=== PATIENT | female | born 1985 | race Caucasian/White ===

== ENCOUNTER 2020-07-17 17:11 | Outpatient (CLI) | payer OTHER, SELFPAY ==
[2020-07-17 18:04] LABS: Beta HCG Quantitative < 2.39 mIU/ML
== END 2020-07-17 17:12 | disposition home or self-care (01) ==
LOC: ANHLAB 17:13
PROVIDERS: PCP Family Medicine; Visit Provider Obstetrics & Gynecology
DX: N91.2 Amenorrhea, unspecified (principal)
CPT/HCPCS: 36415; 84702

== ENCOUNTER 2021-09-16 12:36 | Emergency (ER) | payer OTHER, SELFPAY ==
[2021-09-16 12:44] VITALS: BP 125/73; PULSE 101; RESP 16; TEMP 36.7; O2SAT 100
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
== END 2021-09-16 13:55 | disposition home or self-care (01) ==
PROVIDERS: Emergency Provider Registered Nurse
DX: J10.1 Influenza due to other identified influenza virus with other respiratory manifestations (principal); F17.210 Nicotine dependence, cigarettes, uncomplicated
CPT/HCPCS: 87081; 87804; 87880; 99213; G0463

== ENCOUNTER 2022-03-27 12:31 | Emergency (ER) | payer OTHER, SELFPAY ==
[2022-03-27 12:36] VITALS: BP 119/77; PULSE 113; RESP 16; TEMP 37.2; O2SAT 100
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
== END 2022-03-27 13:45 | disposition home or self-care (01) ==
PROVIDERS: Emergency Provider Registered Nurse; PCP Physician Assistant
DX: H66.91 Otitis media, unspecified, right ear (principal); J06.9 Acute upper respiratory infection, unspecified; Z20.822 Contact with and (suspected) exposure to COVID-19; F17.210 Nicotine dependence, cigarettes, uncomplicated; Z87.820 Personal history of traumatic brain injury
CPT/HCPCS: 87081; 87426; 87804; 87880; 99213; C9803; G0463

== ENCOUNTER 2023-04-19 12:15 | Emergency (ER) | payer OTHER, SELFPAY ==
[2023-04-19 12:23] VITALS: BP 138/84; PULSE 86; RESP 20; TEMP 36.5; O2SAT 98
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
== END 2023-04-19 12:40 | disposition home or self-care (01) ==
PROVIDERS: Emergency Provider Nurse Practitioner Family; PCP Physician Assistant
DX: J02.9 Acute pharyngitis, unspecified (principal); F17.210 Nicotine dependence, cigarettes, uncomplicated; Z79.01 Long term (current) use of anticoagulants
CPT/HCPCS: 87081; 87880; 99213; G0463

== ENCOUNTER 2023-10-11 14:48 | Observation (INO) | payer OTHER, SELFPAY ==
[2023-10-11 15:30] VITALS: BP 107/61; PULSE 74
[2023-10-11 15:44] VITALS: BP 104/58; PULSE 76
[2023-10-11 15:48] VITALS: TEMP 36.6
--- NOTE | 2023-10-20 13:12 | PM.OBTRLD ---
OB - Triage/Final Diagnosis Visit Information Comments/Additional reasons for admission: I have assessed the risk for this patient, Madina Mensah, and determined that she would benefit from observation care. Final Diagnosis (1) Abdominal pain affecting : Code(s): O26.899 - Other specified related conditions, unspecified trimester; R10.9 - Unspecified abdominal pain Status: Acute
== END 2023-10-11 16:21 | disposition home or self-care (01) ==
PROVIDERS: Admitting Provider Obstetrics & Gynecology; PCP Physician Assistant; Visit Provider Obstetrics & Gynecology
DX: O26.899 Other specified pregnancy related conditions, unspecified trimester (principal); R10.9 Unspecified abdominal pain; Z3A.00 Weeks of gestation of pregnancy not specified
CPT/HCPCS: 36415; 82947; 85014; 85018; 85461; 86703; 86850; 86900; 86901; 90384; 96372; G0378; G0379; G0432; J2790

== ENCOUNTER 2023-12-24 12:25 | Observation (INO) | payer OTHER, SELFPAY ==
--- NOTE | 2023-12-24 12:26 | PC.NURSE ---
Dr Frances notified of adm c/o contractions at 38.3 weeks.
--- NOTE | 2023-12-24 12:35 | OBADM ---
This patient, Madina Mensah, admitted to the OB room Labor/Delivery/Recovery 104 for observation. Patient/family oriented to hospital policies and general routines including ID bracelet, bed and alarms, visiting hours, pain management, procedures, bathroom and other care routines, personal items, smoking policy, room service/diet, and visiting hours. Patient/Family are encouraged to report perceived risks to care and to ask questions if they do not understand what they are told or what they should do.
--- NOTE | 2023-12-24 14:26 | PC.NURSE ---
Dr Frances updated on slight cervical changed. Will cont to monitor and recheck in two hours.
--- NOTE | 2023-12-24 16:32 | PC.NURSE ---
Dr Frances notified of no additional cervical change and that contractions and freq but patient states they are less strong. Patient comfortable going home. Discharge orders obtained.
--- NOTE | 2024-01-16 07:25 | PM.OBTRLD ---
OB - Triage/Final Diagnosis Visit Information Comments/Additional reasons for admission: I have assessed the risk for this patient, Madina Mensah, and determined that she would benefit from observation care. Final Diagnosis (1) False labor: Code(s): O47.9 - False labor, unspecified Status: Acute
== END 2023-12-24 16:53 ==
PROVIDERS: Admitting Provider Obstetrics & Gynecology; PCP Physician Assistant; Visit Provider Obstetrics & Gynecology
DX: O47.1 False labor at or after 37 completed weeks of gestation (principal); Z3A.38 38 weeks gestation of pregnancy
CPT/HCPCS: G0378; G0379

== ENCOUNTER 2023-12-28 16:00 | Inpatient (IN) | payer OTHER, SELFPAY ==
[2023-12-28] VITALS (13 sets, daily range): BP systolic 105–131; BP diastolic 52–85; PULSE 65–102; TEMP 36.6; BMI 32.1
[2023-12-28 17:21] LABS: Basophils Percent Auto 0.2 % (0.2-1.2); Eosinophils Absolute Auto 0.1 K/mm3 (0-0.3); Eosinophils Percent Auto 0.8 % (0-4.4); Hemoglobin 12.3 g/dL (12.0-15.0); Immature Granulocyte Absolute 0.11 K/mm3 (0.00-0.031); Immature Granulocyte Percent A 0.9 % (0-0.5); Lymphocytes Absolute Auto 2.12 K/mm3 (0.9-3.2); Lymphocytes Percent Auto 17.3 % (18.3-44.2); Mean Corpuscular HGB Conc 33.2 g/dl (32-36); Mean Corpuscular Volume 99.2 fl (80-100); Mean Platelet Volume 11.6 fl (7.4-10.4); Monocytes Absolute Auto 0.9 K/mm3 (0.1-0.6); Neutrophils Percent Auto 73.8 % (45.5-73.1); Platelet Count Result 193 k/mm3 (150-375); Red Blood Count 3.73 M/mm3 (4.2-5.4); Red Cell Distribution Width 14.6 % (11.5-14.5); White Blood Count 12.2 K/mm3 (4.5-10.0)
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
[2023-12-28] MEDS: AMPICILLIN 2 GM/NS 100 ML 2 GM/100 ML BAG IVPB (17:42)
[2023-12-28] MEDS: OXYTOCIN 30 UNITS/NS 500 ML 30 UNITS/500 ML BAG IV CONT (17:43)
[2023-12-28] MEDS: LACTATED RINGERS 1,000 ML 125 ML IV CONT (17:43)
[2023-12-28 17:58] LABS: Rapid Plasma Reagin Non-Reactive (NonReactive)
[2023-12-28 18:13] LABS: HIV 1/2 Ab P24 Ag Result Negative (Negative)
[2023-12-28] MEDS: AMPICILLIN 1 GM/NS 50 ML 1 GM/50 ML BAG IVPB (21:50)
[2023-12-29] VITALS (173 sets, daily range): BP systolic 65–142; BP diastolic 40–91; PULSE 43–103; RESP 18; TEMP 36.2–36.4; O2SAT 76–100
[2023-12-29] MEDS: AMPICILLIN 1 GM/NS 50 ML 1 GM/50 ML BAG IVPB (03:15)
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
[2023-12-29] MEDS: OXYTOCIN 30 UNITS/NS 500 ML 30 UNITS/500 ML BAG 125 UNITS IV CONT (09:40)
--- NOTE | 2023-12-29 10:39 | PM.OBPRVD ---
OB - Vaginal Delivery Note Procedure Delivery date: 12/29/23 Events: Elective Induction of Labor and Other (hx of DVT on heparin) Induction method: Per Pitocin Protocol Delivery augmentation: Rupture of Membranes Delivery monitor: External FHT and External Uterine Route of delivery: Episiotomy description: None Laceration Description: None Specimen: Yes Anesthesia type: Epidural Disposition: Floor Complications: No immediate complications Narrative: See H&P and notes for details on patient's admission and labor. She progressed to complete cervical dilation and at the appropriate time began pushing. With adequate expulsive efforts by the mother, the baby's head was delivered without difficulty. Nuchal cord was not present. The baby's left shoulder was anterior and delivered under the pubic symphysis without difficulty. The posterior shoulder and the rest of the baby delivered without difficulty. The umbilical cord was doubly clamped and cut after 60 seconds of delayed cord clamping. Care of the infant was then assumed by the nursing staff. Baby Date of : 12/29/23 Time of : 09:13 Gestational Age by Date: 39 Infant gender: Female presentation: vertex position: Left Occiput Anterior Placenta delivery description: Expressed Cord Vessel Description: 3 Vessels, True Knot and Delayed Cord Clamping
[2023-12-29] MEDS: WITCH HAZEL 40 PADS 1 PAD TOPICAL (11:30)
[2023-12-29] MEDS: BENZOCAINE 20% AER SPR (*SP) 56 GM CAN 1 SPRAY TOPICAL (11:30)
--- NOTE | 2023-12-29 12:00 | OBPPTRN ---
Patient transferred to post room #282 via wheelchair. Support person present. Oriented to unit, room, information board, rooming in, admission packet and security measures. Patient verbalizes understanding.
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
[2023-12-29] MEDS: ACETAMINOPHEN 325 MG TABLET 650 MG PO (19:51)
[2023-12-29] MEDS: ENOXAPARIN 40 MG/0.4 ML SYRINGE SUB-Q (20:02)
[2023-12-30] MEDS: ACETAMINOPHEN 325 MG TABLET 650 MG PO ×3 (03:56→18:59)
[2023-12-30 04:00] VITALS: BP 126/74; PULSE 65; RESP 18; TEMP 36.5; O2SAT 98
[2023-12-30 06:06] LABS: Hematocrit 33.7 % (37.0-47.0); Hemoglobin 10.9 g/dL (12.0-15.0)
[2023-12-30 08:00] VITALS: BP 140/78; PULSE 61; RESP 18; TEMP 36.9; O2SAT 100
--- NOTE | 2023-12-30 08:29 | PM.OBPNVD ---
OB - PN: Subj Subjective Date/time seen: 12/30/23 08:29 Patient comments: no complaints, pain well controlled, incisional pain, tolerating diet and flatus present OB - PN: Obj Data Labs 12/30/23 04:04 Labs: Laboratory Results - last 24 hr 12/30/23 04:04 Hgb 10.9 L Hct 33.7 L Blood Type O Negative Antibody Screen Negative Screen Negative Baby's Blood Type O pos Baby's DB Negative Doses of RhIg Required 1 OB - PN A/P Plan day: 1 Plan: routine care Comments: No problems, routine care Time Spent With Patient Time: Total time spent is greater than 50% in coordination of care (as documented) at patient's floor/unit and/or counseling patient: Exam Const: General: comfortable, no acute distress and alert Resp: Effort & Inspection: normal respiratory effort Auscultation: no crackles, no rales and no rhonchi Cardio: Rate: regular rate Heart sounds: no click, no murmurs and no rubs GI: Inspection: non-distended GI Palp: No Tenderness to palpation present (GI) Auscultation: normal bowel sounds Other: Incision - CDI Extrem: General: normal to inspection, no pedal edema and no calf tenderness
--- NOTE | 2023-12-30 09:51 | PC.NURSE ---
Went in to give pt her Lovenox and PNV, she is not in the room or on the OB unit at this time
[2023-12-30] MEDS: ENOXAPARIN 40 MG/0.4 ML SYRINGE SUB-Q ×2 (10:26→20:51)
[2023-12-30] MEDS: RHO(D) IMMUNE GLOBULIN 300 MCG/2 ML SYRINGE IM (17:05)
[2023-12-30 20:00] VITALS: BP 138/94; PULSE 70; RESP 18; TEMP 36.7; O2SAT 99
[2023-12-31] MEDS: ACETAMINOPHEN 325 MG TABLET 650 MG PO ×2 (01:39→07:55)
[2023-12-31 07:50] VITALS: BP 145/89; PULSE 71; RESP 18; TEMP 36.8
[2023-12-31] MEDS: ENOXAPARIN 40 MG/0.4 ML SYRINGE SUB-Q (07:55)
--- NOTE | 2023-12-31 10:48 | PM.OBPNVD ---
OB - PN: Subj Subjective Date/time seen: 12/31/23 10:48 Patient comments: no complaints, pain well controlled and tolerating diet OB - PN: Obj Data Labs 12/30/23 04:04 Labs: Laboratory Results - last 24 hr 12/30/23 04:04 Blood Type O Negative Antibody Screen Negative Screen Negative Baby's Blood Type O pos Baby's DB Negative Doses of RhIg Required 1 OB - PN A/P Plan day: 2 Plan: routine care and discharge home Time Spent With Patient Time: Total time spent is greater than 50% in coordination of care (as documented) at patient's floor/unit and/or counseling patient: Exam Const: General: comfortable and no acute distress Resp: Effort & Inspection: normal respiratory effort Auscultation: no rales, no rhonchi and no wheezes Cardio: Rate: regular rate Heart sounds: no click, no murmurs and no rubs GI: GI Palp: Yes Soft to palpation and No Tenderness to palpation present (GI) Auscultation: normal bowel sounds Extrem: General: normal to inspection, no pedal edema and no calf tenderness
--- NOTE | 2023-12-31 10:48 | PM.OBDSVD ---
DS: Admitting Diagnosis Discharge Date December 31, 2023 Admitting Diagnosis term DS: Discharge Diagnosis Discharge Diagnosis (1) Post term , delivered: Code(s): O48.0 - Post-term Status: Acute OB - DS: Summary OB Procedures : None OB Procedures Intrapartum: Spontaneous Vag Delivery OB Procedures: : None Peripartum Data Laceration Description: None Episiotomy description: None Time Spent with Patient Time attestation: Total time spent providing and/or coordinating discharge services: DS: Data Data Completed and Pending Pending studies at discharge: Pending at discharge 12/29/23 09:51 Surgical [PTH] Routine Labs on day of discharge: Labs from last 24 hours 12/30/23 04:04 Blood Type O Negative Antibody Screen Negative Screen Negative Baby's Blood Type O pos Baby's DB Negative Doses of RhIg Required 1 Discharge Plan Discharge Discharging Clinician: Donny Frances Patient Disposition: Home, Self-Care Activity: pelvic rest Diet: regular Patient Instructions: Antibiotic Form Stand Alone Forms: General Discharge Information Follow-up/Referrals: Donny Frances MD [Physician] - Discharge Medications: New oxycodone-acetaminophen 5-325 mg tablet 1 tablet PO Q4H PRN (Reason: pain) Qty: 10 0RF Continued heparin (porcine) 10,000 unit/mL solution 10,000 unit subcut BID Date of admission: 12/28/23 16:00 Primary Care Provider: BlancaCece Admitting Provider: Forrest Redding Attending physician on admission: Forrest Redding Condition: Stable
[2024-01-03 11:16] VITALS: BP 125/77; PULSE 84; RESP 18; TEMP 37.1; O2SAT 99
== END 2023-12-31 12:15 | disposition home or self-care (01) | DRG 807 ==
LOC: ANHOB2 12-31 11:38 → ANHLDR 01-02 08:43 → ANHOB2 01-02 08:43
PROVIDERS: Admitting Provider Obstetrics & Gynecology; PCP Physician Assistant; Visit Provider Obstetrics & Gynecology
DX: O69.2XX0 Labor and delivery complicated by other cord entanglement, with compression, not applicable or unspecified (principal); Z37.0 Single live birth; Z3A.39 39 weeks gestation of pregnancy; Z86.718 Personal history of other venous thrombosis and embolism; O99.824 Streptococcus B carrier state complicating childbirth; O99.334 Smoking (tobacco) complicating childbirth; F17.210 Nicotine dependence, cigarettes, uncomplicated
CPT/HCPCS: 36415; 85014; 85018; 85025; 85461; 86592; 86703; 86850; 86900; 86901; 88307; 90384; A9270; G0432; J0290; J1650; J2590; J2790; J2795; J7120

== ENCOUNTER 2024-10-07 11:07 | Emergency (ER) | payer OTHER, SELFPAY ==
[2024-10-07 11:15] VITALS: BP 118/80; PULSE 100; RESP 20; TEMP 36.4; O2SAT 98
--- OUTSIDE RECORDS SUMMARY | 2024-10-07 11:26 | XMS_ITS | Clinical Summary ---
Author Organization [facility] [employer] Address [address] [place] [address] Care Team Providers Care Membership Sales Manager Name Role Phone Unavailable Primary Care Provider Unavailabl e Source Comments [facility],non-owned Affiliates and Associated Physician Practices is amultiple site organization consisting of ambulatory clinics and hospital sitesin [place], [place], [place] and [place]. This disclosure is being madepursuant to the Care Everywhere program and may not contain all information available regarding this patient. Last updated 18.[facility] [employer] Allergies Active Allergy Reactions Criticality Noted Date Comments Aspirin Anaphylaxis,Urticaria High 07/17/2023 Medications * Be aware that medications may not be up to date on this document. Alwaysverify current medications with the patient. Vit-DSS-Fe Fum-FA ( vitamin with iron) tabletIndicati ons: Take 1 (one) tablet by mouth once daily Reasons: Active enoxaparin (Lovenox) 40 MG/0.4ML injection Inject 40 (forty) mg subcutaneously once daily Active docusate sodium (Colace) 100 MG capsuleIndicat ions:Constipat ion Take 1 (one) capsule by mouth at bedtime Reasons: Constipation Active Family History Medical History Relation Name Comments CAD (Coronary Artery Disease) Father High Cholesterol Father Lung Disease Father Cancer - Lung Maternal Grandfather Renal Disease Maternal Grandfather High Cholesterol Maternal Grandmother Lung Disease Maternal Grandmother High Cholesterol Mother Hypertension Mother Relation Name Status Comments Father Maternal Grandfather Maternal Grandmother Mother Social History Tobacco Use Types Packs/Day Years Used Date Smoking Tobacco: Every Day Cigarettes 0.5 25 Smokeless Tobacco: Never Tobacco Cessation:Ready to Q uit: Not Asked; Counseling Given: Not Answered Alcohol Use Standard Drinks/Week Comments Not Currently 0 (1 standard drink = 0.6 oz pur e alcohol) Comments No Sex and Gender Information Value Date Recorded Sex Assigned at Not on file Legal Sex Female 1:37 PM CDT Gender Identity Not on file Sexual Orientation Not on file Last Filed Vital Signs Vital Sign Reading Time Taken Comments Blood Pressure 96/66 07/19/2023 9:12 AM SMALL ANIMAL CARETAKER Pulse 86 07/19/2023 9:12 AM SMALL ANIMAL CARETAKER Temperature - - Respiratory Rate - - Oxygen Saturation - - Inhaled Oxygen Concentration - - Weight 78.9 kg (174 lb) 07/19/2023 9:12 AM SMALL ANIMAL CARETAKER Height 158.8 cm (5' 2.5 ) 07/19/2023 9:12 AM SMALL ANIMAL CARETAKER Body Mass Index 31.32 07/19/2023 9:12 AM SMALL ANIMAL CARETAKER Plan of Treatment Health Maintenance Due Date Last Done Comments PAP SMEAR 1987 HEPATITIS C SCREENING 10/10/2005 DTAP/TDAP/TD VACCINES (1 - Tdap) 10/14/2006 HEPATITIS B VACCINE (1 of 3 - 19+ 3-dose series) 10/14/2006 PNEUMOCOCCAL VACCINE (1 of 2 - PCV) 10/14/2006 COVID-19 VACCINE (2 - season) 2024 06/14/2021 DEPRESSION SCREENING 05/29/2024 MEDICARE AWV CALENDAR YEAR 2024 INFLUENZA VACCINE (Season Ended) 2025 02/01/2023, 04/15/2022, 05/08/2018, Additional history exists ZOSTER VACCINE (1 of 2) 10/14/2037 HIV SCREENING Completed 06/26/2023 HIB VACCINE Aged Out No longer eligi ble based on patient's age to complete this topic HPV VACCINE Aged Out No longer eligi ble based on patient's age to complete this topic MENINGOCOCCAL (Group B) VACCINE SHARED DECISION-MAKING Aged Out No longer eligible based on patient's age to complete this topic MENINGOCOCCAL GROUPS A/C/Y/W VACCINE Aged Out No longer eligible based on patient's age to complete this topic Insurance [facility] [place]F [place] INSURANCE Member Subscriber Plan / Payer (Ef fective for All Dates) Name:Endy Elkins Member ID:Not on file Relation to Subscriber:Not on file Name:ENDY ELKINS Subscriber ID:Not on file (Home) Address: [address] [place] [id number] Payer ID:Not on file Group ID:Not on file Type:Self Pay Address: [place], [place] DUAL ADV ID SELF PAY NO INSURANCE Member Subscriber Plan / Payer (Ef fective for All Dates) Name:Endy Elkins Member ID:Not on file Relation to Subscriber:Not on file Name:ENDY ELKINS Subscriber ID:Not on file Address: [address] [place] [phone] Payer ID:Not on file Group ID:Not on file Type:Self Pay Address: [place], [place]
--- OUTSIDE RECORDS SUMMARY | 2024-10-07 11:26 | XMS_ITS | Data Portability ---
Author Organization [facility] [place] Address [address] [place] [address] [place] [address] Care Team Providers Care Data Examination Clerk Name Role Phone JOSETTE PORTER Primary Care Provider Assessment No assessment recorded. Plan of Treatment Reminders Order Date Submit Date Provider Last Modified By Organization Details Last Modified Time Details Appointments None recorded. Lab None recorded. Referral None recorded. Procedures None recorded. Surgeries None recorded. Imaging non-stress test 2023 024 [email or web address] [place], [address], [place], [address], 4 02:21:52 US, obstetric, biophysical profile + non-stress test 2023 024 [email or web address] [place], [address], [address], [place], [address], 4 22:01:51 US, doppler, umbilical artery velocimetry 2023 024 [email or web address] [place], [address], [address], [place], [address], 4 22:01:51 non-stress test 2023 024 [email or web address] [place], [address], [place], [address], 4 09:23:10 Medication Orders None recorded. Patient TargetsNo targets recorded. Patient InstructionsNo instructions recorded. Reason for Referral None Reported. Results Created Date Observation Date Name Description Value Unit Range Abnormal Flag Note LastModifiedBy Organization Detail LastModifiedTime 12/04/19 24 12/04/2023 CBC W/DIF F WBC 11.3 10'3/ uL 3.5-10 .5 high Not Available [facility] (Lab) [address], [place], [address], 12/05/2023 06:23:00 12/04/19 24 12/04/2023 CBC W/DIF F RBC 3.65 10'6/ uL (based on docume nted legal sex) 3.80-5 .20 low Not Available [facility] (Lab) [address], [place], [address], 12/05/2023 06:23:00 12/04/19 24 12/04/2023 CBC W/DIF F HGB 11.7 g/dL (based on docume nted legal sex) 11.6-1 5.4 Not Available [facility] (Lab) [address] [place], [address], 12/05/2023 06:23:00 12/04/19 24 12/04/2023 CBC W/DIF F HCT 36.9 % (based on docume nted legal sex) 34.0-4 5.0 Not Available [facility] (Lab) [address] [place], [address], 12/05/2023 06:23:00 12/04/19 24 12/04/2023 CBC W/DIF F MCV 101.1 fL 80.0-9 9.0 high Not Available [facility] (Lab) [address] [place], [address], 12/05/2023 06:23:00 12/04/19 24 12/04/2023 CBC W/DIF F MCH 32.1 pg 27.0-3 4.0 Not Available [facility] (Lab) [address] [place], [address], 12/05/2023 06:23:00 12/04/19 24 12/04/2023 CBC W/DIF F MCHC 31.7 g/dL 32.0-3 5.5 low Not Available [facility] (Lab) [address], [place], [address], 12/05/2023 06:23:00 12/04/19 24 12/04/2023 CBC W/DIF F RDW 15.3 % 11.0-1 5.0 high Not Available [facility] (Lab) [address] [facility], [place], [address], 12/05/2023 06:23:00 12/04/19 24 12/04/2023 CBC W/DIF F plt 192 10'3/ uL 150-40 0 Not Available [facility] (Lab) [address] [facility], [place], [address], 12/05/2023 06:23:00 12/04/19 24 12/04/2023 CBC W/DIF F MPV 12.0 fL 8.8-12 .1 Not Available [facility] (Lab) [address], [place], [address], 12/05/2023 06:23:00 12/04/19 24 12/04/2023 CBC W/DIF F NRBC's 0.0 % 0.0 Not Available [facility] (Lab) [address] [facility], [place], [address], 12/05/2023 06:23:00 12/04/19 24 12/04/2023 CBC W/DIF F absolute NRBCs 0.0 10'3/ uL no refere nce range establ ished Not Available [facility] (Lab) [address] [facility], [place], [address], 12/05/2023 06:23:00 12/04/19 24 12/04/2023 CBC W/DIF F neutrophils 72.6 % 34.0-7 3.0 Not Available [facility] (Lab) [address] [facility], [place], [address], 12/05/2023 06:23:00 12/04/19 24 12/04/2023 CBC W/DIF F lymphocytes 17.5 % 15.0-5 0.0 Not Available [facility] (Lab) [address] [facility], [place], [address], 12/05/2023 06:23:00 12/04/19 24 12/04/2023 CBC W/DIF F monocytes 8.4 % 1.0-15 .0 Not Available [facility] (Lab) [address] [facility], [place], [address], 12/05/2023 06:23:00 12/04/19 24 12/04/2023 CBC W/DIF F eosinophils 0.8 % 0.0-8. 0 Not Available [facility] (Lab) [address] [facility], [place], [address], 12/05/2023 06:23:00 12/04/19 24 12/04/2023 CBC W/DIF F basophils 0.2 % 0.0-2. 0 Not Available [facility] (Lab) [address] [facility], [place], [address], 12/05/2023 06:23:00 12/04/19 24 12/04/2023 CBC W/DIF F immature granulocytes 0.5 % no define d refere nce range Not Available [facility] (Lab) [address] [facility], [place], [address], 12/05/2023 06:23:00 12/04/19 24 12/04/2023 CBC W/DIF F absolute neutrophils 8.2 10'3/ uL 1.5-8. 0 high Not Available [facility] (Lab) [address] [place], [address], 12/05/2023 06:23:00 12/04/19 24 12/04/2023 CBC W/DIF F absolute lymphocytes 2.0 10'3/ uL 1.0-4. 0 Not Available [facility] (Lab) [address] [facility], [place], [address], 12/05/2023 06:23:00 12/04/19 24 12/04/2023 CBC W/DIF F absolute monocytes 1.0 10'3/ uL 0.2-1. 0 Not Available [facility] (Lab) [address] [facility], [place], [address], 12/05/2023 06:23:00 12/04/19 24 12/04/2023 CBC W/DIF F absolute eosinophils 0.1 10'3/ uL 0.0-0. 6 Not Available [facility] (Lab) [address] [place], [address], 12/05/2023 06:23:00 12/04/19 24 12/04/2023 CBC W/DIF F absolute basophils 0.0 10'3/ uL 0.0-0. 3 Not Available [facility] (Lab) [address] [facility], [place], [address], 12/05/2023 06:23:00 12/04/19 24 12/04/2023 CBC W/DIF F absolute immature granulocytes 0.1 10'3/ uL 0.00-0 .10 4:53 AM: P indic ates parti al resul ts on a panel have been relea sed. Addit ional resul ts will follo w. 4:53 AM: This resul t has been final verif ied. No addit ional or melendez ed resul ts are expec britt. Not Available [facility] (Lab) [address] [place], [address], 12/05/2023 06:23:00 12/04/19 24 12/04/2023 BHAVESH TIN / IRON / TRANS BHAVESH N / TIBC iron 169 ug/dL 40-170 Not Available [facility] (Lab) [address] [facility], [place], [address], 12/05/2023 06:23:01 12/04/19 24 12/04/2023 BHAVESH TIN / IRON / TRANS BHAVESH N / TIBC transferrin 482 mg/dL 200-36 0 high Not Available [facility] (Lab) [address] [facility], [place], [address], 12/05/2023 06:23:01 12/04/19 24 12/04/2023 BHAVESH TIN / IRON / TRANS BHAVESH N / TIBC ferritin 49.7 NG/mL 8.0-25 2.0 Not Available [facility] (Lab) [address] [facility], [place], [address], 12/05/2023 06:23:01 12/04/19 24 12/04/2023 BHAVESH TIN / IRON / TRANS BHAVESH N / TIBC TIBC 675 ug/dL 250-45 0 high Not Available [facility] (Lab) [address] [facility], [place], [address], 12/05/2023 06:23:01 12/04/19 24 12/04/2023 BHAVESH TIN / IRON / TRANS BHAVESH N / TIBC iron saturation 25 % 20-55 Not Available [facility] (Lab) [address] [facility], [place], [address], 12/05/2023 06:23:01 12/04/19 24 12/04/2023 CULTU RE: GROUP B STREP SCREE N result report SEE RESULT S BELOW abnormal Test: Cultu re: Group B Strep Scree n - Vagin al/Re ctal Speci men Sourc e: Vagin a/Rec maite Speci men Type: Vagin al/Re ctal Speci men Date: 024 1422 Resul t Date: 2023 1430 Resul t Statu s: Final resul t Abnor mal: Yes Resul ting Lab: [facility] [address] [facility] [address] Tel: CULTU RE ----- ----- ----- --- Posit frankie for Strep tococ cus agala ctiae (Grou p B) (Abno rmal) Strep tococ cus agala ctiae (Beta strep Group B Strep ) remai ns unive rsall y susce ptibl e to penic illin , cefaz vasquez and vanco mycin . If clind amyci n is being consi dered for intra partu m proph ylaxi s, pleas e conta ct the lab withi n 5 days. Not Available [facility] (Lab) [address], [place], [address], 12/06/2023 15:33:39 11/20/19 24 11/20/2023 US, obste tric, follo w-up No observ ation record ed. [email or web address] [place] [address], [place], [address], 11/20/2023 13:09:35 11/20/19 24 11/20/2023 US, obste tric, follo w-up No observ ation record ed. [email or web address] [address] [facility], [place], [address], 11/21/2023 12:49:00 12/12/19 24 12/12/2023 US, obste tric, follo w-up No observ ation record ed. [email or web address] [place] [address], [place], [address], 12/12/2023 12:58:18 12/12/19 24 12/12/2023 US, obstrose escoto, bioph ysica l profi le No observ ation record ed. [email or web address] [place] [address], [place], [address], 12/12/2023 12:58:09 12/12/19 24 12/12/2023 US, doppl er, umbil ical arter y veloc imetr y No observ ation record ed. [email or web address] [place] [address], [place], [address], 12/12/2023 12:58:00 12/12/19 24 12/12/2023 US, obste tric, follo w-up No observ ation record ed. [email or web address] [address], [place], [address], 12/14/2023 01:01:30 12/20/19 24 12/20/2023 US, obste tric, bioph ysica l profi le + non-s tress test No observ ation record ed. [email or web address] [place] [address], [place], [address], 12/20/2023 13:08:50 12/20/19 24 12/20/2023 US, doppl er, umbil ical arter y veloc imetr y No observ ation record ed. [email or web address] [place] [address], [place], [address], 12/20/2023 13:08:41 12/20/19 24 12/20/2023 US, obste tric, bioph ysica l profi le + non-s tress test No observ ation record ed. [email or web address] [address], [place], [address], 12/20/2023 22:40:20 12/20/19 24 12/20/2023 non-s tress test No observ ation record ed. [email or web address] [place] [address], [place], [address], 12/20/2023 18:37:25 12/26/19 24 12/26/2023 US, obste tric, bioph ysica l profi le + non-s tress test No observ ation record ed. [email or web address] [place] [address], [place], [address], 12/26/2023 12:45:18 12/26/19 24 12/26/2023 US, doppl er, umbil ical arter y veloc imetr y No observ ation record ed. [email or web address] [place] [address], [place], [address], 12/26/2023 12:45:29 12/26/19 24 12/26/2023 US, obste tric, bioph ysica l profi le + non-s tress test No observ ation record ed. [email or web address] [address], [place], [address], 12/27/2023 08:12:37 12/26/19 24 12/26/2023 non-s tress test No observ ation record ed. [email or web address] [place] [address], [place], [address], 12/26/2023 16:42:58 04/11/20 24 04/11/2024 non-s tress test No observ ation record ed. [address], [place], [address], 04/11/2024 14:31:17 Result Notes None recorded. Problems Name Problem SNOMED Code Status Onset Date Resolution Date Notes Provider Name and Address Organization Details Recorded Time Atypical squamous cells of undeterm ined signific ance on cervical Papanico laou smear 885242529 Active 2014 Papanico laou smear of cervix with atypical squamous cells of undeterm ined signific ance (ASC-US) ;Recorde d Elsewher e: No Locat ion: Migdalia rose [facility] S ource: EHR Advisory Intern itzel: N Practi ce ID: [email or web address] Ronal lable Time: 02:45:32 PM Not Available [facility] 0 18:20:05 Pregnanc y [id number] Completed 202301/01/[address] [facility] 4 12:21:04 Advanced maternal age 013036763 Active no ASA ppx 2/2 allergy FAB FINNEY MD [address], [place], [address], [facility] 4 11:20:53 Lupus anticoag ulant disorder 38743512 Active followed by heme/onc Dr Elva FINNEY MD [address], [place], [address], [facility] 4 23:08:21 Mixed anxiety and depressi ve disorder 100603695 Active d/c'd meds with pregnanc y, previous ly on zoloft and hydroxyz karen FINNEY MD [address], [place], [address], [facility] 4 11:20:53 History of deep vein thrombos is 355381335 Active 2022 on prophyla ctic lovenox 40mg BID, MFM consult sent, plan for ppx lovenox through pregnanc y, heparin at 36 weeks and x6 weeks postpart lisa FINNEY MD [address], [place], [address], [facility] 4 11:20:53 Advanced maternal age 730678594 Completed no ASA ppx 2/2 allergy FAB FINNEY MD [address], [place], [address], [facility] 4 11:20:53 Mixed anxiety and depressi ve disorder 571997360 Completed d/c'd meds with pregnanc y, previous ly on zoloft and hydroxyz karen FINNEY MD [address], [place], [address], [facility] 4 11:20:53 History of deep vein thrombos is 215092164 Completed 2022 on prophyla ctic lovenox 40mg BID, MFM consult sent, plan for ppx lovenox through pregnanc y, heparin at 36 weeks and x6 weeks postpart um FAB FINNEY MD [address], [place], [address], [facility] 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 4 11:20:53 Factor II deficien cy 27561890 Completed lovenox 40 BID FAB FINNEY MD [address], [place], [address], [facility] 4 11:20:53 Group B Streptoc occus carrier [id number] 103 Completed tx in labor FAB FINNEY MD [address], [place], [address], [facility] 4 11:20:53 Problem Notes None recorded. Procedures Surgical History Date Name Laterality Status Provider Name and Address Organization Details Recorded Time 023 Date of Last Pap Smear completed Antonella Ortiz [facility] 09/20/2023 10:42:25 005 procedure on knee completed Kristina Leiva [facility] 06/28/2023 20:29:53 005 hyperventilation therapy for traumatic brain injury completed Kristina Leiva [facility] 06/28/2023 20:30:50 Imaging Results Imaging Date Name Status LastModified by Organiz ation Details LastModified Time 11/20/2023 US, obstetric, follow-up completed [email or web address] [place] [address], [place], [address], 11/20/2023 13:09:35 11/20/2023 US, obstetric, follow-up completed [email or web address] [address], [place], [address], 11/21/2023 12:49:00 12/12/2023 US, obstetric, follow-up completed [address], [place], [address], 12/12/2023 12:58:18 12/12/2023 US, obstetric, biophysical profile completed [address], [place], [address], 12/12/2023 12:58:09 12/12/2023 US, doppler, umbilical artery velocimetry completed [address], [place], [address], 12/12/2023 12:58:00 12/12/2023 US, obstetric, follow-up completed [email or web address] [address], [place], [address], 12/14/2023 01:01:30 12/20/2023 US, obstetric, biophysical profile + non-stress test completed [address], [place], [address], 12/20/2023 13:08:50 12/20/2023 US, doppler, umbilical artery velocimetry completed [address], [place], [address], 12/20/2023 13:08:41 12/20/2023 US, obstetric, biophysical profile + non-stress test completed [email or web address] [address], [place], [address], 12/20/2023 22:40:20 12/20/2023 non-stress test [facility] [address], [place], [address], 12/20/2023 18:37:25 12/26/2023 US, obstetric, biophysical profile + non-stress test completed [email or web address] [place] [address], [place], [address], 12/26/2023 12:45:18 12/26/2023 US, doppler, umbilical artery velocimetry completed [email or web address] [place] [address], [place], [address], 12/26/2023 12:45:29 12/26/2023 US, obstetric, biophysical profile + non-stress test completed [email or web address] [address], [place], [address], 12/27/2023 08:12:37 12/26/2023 non-stress test completed [address], [place], [address], 12/26/2023 16:42:58 04/11/2024 non-stress test completed [address], [place], [address], 04/11/2024 14:31:17 Procedure Notes None recorded. Medical Equipment None Reported. Allergies Allergen ID Allergen Name Allergen Category Reaction Reaction Severity Criticality Documentation Date Start Date Code Code System Note Provider Name and Address Organization Details Recorded Time 66455 aspirin medicatio n anaphylax is Not available Not available 05/15/[address] [facility] 4 17:16:13 63009 Keflex medicatio n other moderate Not available 11/02/2023 [address] [facility] 4 11:15:40 Medications Name Sig Start Date Stop Date Status Note LastModified by Organization Details LastModified Time bupropion HCl SR 150 mg tablet,12 hr sustained -release TAKE 1 TABLET BY MOUTH TWICE DAILY 06/06 completed Not Available Not Available Not Available BD Luer-Myrna Syringe 3 mL 25 x 5/8 USE TWICE DAILY DIRECTED WITH HEPARIN 12/30 completed Not Available Not Available Not Available Claritin 10 mg tablet take 1 tablet by oral route every day 06/06 completed Prescrib ed Elsewher e: Yes Loca tion: Migdalia [facility] odify By: yoana maldonado DateTime : 12/06/19 19 02:00:00 PM Not Available Not Available Not Available naltrexon e 50 mg tablet TAKE 1 TABLET BY MOUTH DAILY 06/06 completed Not Available Not Available Not Available sertralin e 100 mg tablet TAKE 1 TABLET BY MOUTH DAILY 01/25 completed Not Available Not Available Not Available Hemorrhoi georgie 0.25 %-3 % rectal supposito ry Insert 1 supposit ory every day by rectal route as needed. 2023 active Not Available Not Available Not Avai lable oxycodone -acetamin ophen 5 mg-325 mg tablet TAKE 1 TABLET BY MOUTH EVERY 4 HOURS NEEDED FOR PAIN active Not Available Not Available No t Available hydrocort isone 2.5 % topical cream with perineal applicato r APPLY THIN LAYER TOPICALL Y TO THE AFFECTED AREA 2 TO 4 TIMES DAILY active Not Available Not Available No t Available methocarb sandra 750 mg tablet TAKE 1 TABLET BY MOUTH FOUR TIMES DAILY NEEDED FOR MUSCLE SPASM 06/06 completed Not Available Not Available Not Available hydroxyzi ne HCl 25 mg tablet TAKE 1 TABLET BY MOUTH EVERY 8 HOURS NEEDED FOR ANXIETY 06/06 completed Not Available Not Available Not Available polyethyl palmer glycol 3350 17 gram/dose oral powder MIX 17 GM WITH A LIQUID AND DRINK ONCE DAILY active Not Available Not Available No t Available Anusol-HC 25 mg rectal supposito ry active Not Available Not Available Not Available Vitamin D2 1,250 mcg (50,000 unit) capsule take 1 capsule (54006EU ITS) by oral route every week 07/22 completed Prescrib ed Elsewher e: No [facility]at [facility] odify By: carie maldonado DateTime : 08/28/19 13 08:15:02 AM Not Available Not Available Not Available heparin (porcine) 10,000 unit/mL injection solution INJECT 1 ML TWICE DAILY DIRECTED 12/30 completed Not Available Not Available Not Available Melrose 5 mg-325 mg tablet take 1 tablet by oral route every 6 hours as needed for pain 03/26 completed Prescrib ed Elsewher e: No Locat ion: [facility] odify By: carie maldonado DateTime : 02/29/20 13 05:36:57 PM Not Available Not Available Not Available ondansetr on 4 mg disintegr ating tablet DISSOLVE 2 TABLETS ON THE TONGUE TWICE DAILY 08/21 completed Not Available Not Available Not Available sertralin e 50 mg tablet TAKE 1 TABLET BY MOUTH DAILY 06/06 completed Not Available Not Available Not Available Flexeril 10 mg tablet take 1 tablet (10MG) by oral route 2 times every day 03/26 completed Prescrib ed Elsewher e: No Locat ion: [facility] odify By: carie maldonado DateTime : 08/23/19 13 04:59:28 PM Not Available Not Available Not Available enoxapari n 40 mg/0.4 mL subcutane ous syringe INJECT 0.4 ML SUBCUTAN EOUSLY TWICE DAILY FOR 42 DAYS active Not Available Not Available No t Available iron ER 325 mg (65 mg iron) capsule,e xtended release take 1 Tablet by Oral route 3 times every day 07/22 completed Prescrib ed Elsewher e: Yes Loca tion: [facility] odify By: carie maldonado DateTime : 03/26/20 13 10:30:00 AM Not Available Not Available Not Available cyclobenz aprine 5 mg tablet TAKE 1 TABLET BY MOUTH THREE TIMES DAILY FOR 5 DAYS 06/06 completed Not Available Not Available Not Available Wellbutri n XL 300 mg 24 hr tablet, extended release take 1 tablet by oral route every day 08/23 completed Prescrib ed Elsewher e: No Locat ion: [facility] odify By: yoana maldonado DateTime : 08/19/19 15 10:00:00 AM Not Available Not Available Not Available BD Regular Bevel [place] 25 gauge x 5/8 USE TWICE DAILY DIRECTED WITH HEPARIN 12/30 completed Not Available Not Available Not Available Lutera (28) 0.1 mg-20 mcg tablet TAKE 1 TABLET BY MOUTH ONCE DAILY- SKIP PLACEBOS AND START NEW PACK 03/30 completed Prescrib ed Elsewher e: No Locat ion: Migdalia rose [facility] odify By: yoana maldonado DateTime : 11/18/19 15 04:49:42 PM Not Available Not Available Not Available iron 01/25 completed Not Available Not Available Not Available 10 mg-[address] by Topical route every USE ASS NEEDED WITH INTERCOU RSE 07/22 completed Prescrib ed Elsewher e: Yes Loca [facility]ion: [facility] odify By: carie lehmanuntcharlotte DateTime : 03/26/20 13 10:30:00 AM Not Available Not Available Not Available Daily 06/26 completed Not Available Not Available Not Available Lo Loestrin Fe 1 mg-10 mcg (24)/10 mcg (2) tablet take 1 tablet by oral route every day. Skip placebo pills and start new pack. 04/08 completed Prescrib ed Elsewher e: No Locat ion: Migdalia rose [facility] odify By: patrick Lewis er DateTime : 04/07/20 14 10:28:09 AM Not Available Not Available Not Available Xarelto 20 mg tablet TAKE 1 TABLET BY MOUTH DAILY WITH DINNER FOR BLOOD CLOT IN VEINS 06/06 completed Not Available Not Available Not Available 28 mg iron-800 mcg tablet 01/25 completed Prescrib ed Elsewher e: Yes Loca [facility]ion: [facility] odify By: yoana maldonado DateTime : 11/18/19 17 04:30:00 PM Not Available Not Available Not Available Xarelto DVT-PE Treatment 30-Day Starter 15 mg(42)-20 mg(9) tablet pack TAKE DIRECTED 06/06 completed Not Available Not Available Not Available Seasonale (91) 0.15 mg-30 mcg tablets,3 month dose pack take 1 tablet by oral route every day 04/08 completed Prescrib ed Elsewher e: No Locat ion: [facility] Marcel farley By: cmedical Encount er DateTime : 12/20/19 01:27:35 PM Not Available Not Available Not Available Vitals Date Recorded Body weight Provider Name an d Address Organization Details Last Updated DateTime 12/20/2023 78496.26724 g Marcel BORDEN [address], [place], [address], [facility] 12/20/2023 11:01:19 Date Recorded Body height Body mass index (BMI) Provider Name and Address Organization Details Last Updated DateTime 12/20/2023 158.75 cm 32.6 kg/m2 [facility] 12/20/2023 10:42:59 Date Recorded Systolic blood pressure Diastolic blood pressure Provider Name and Address Organization Details Last Updated DateTime 12/20/2023 109 mm[Hg] 76 mm[Hg] Paz Trisha [facility] 12/20/2023 10:40:36 Date Recorded Body height Body mass index (BMI) Body weight Systolic blood pressure Diastolic blood pressure Provider Name and Address Organization Details Last Updated DateTime 12/26/2023 158.75 cm 32.2 kg/m2 45614.03 g 109 mm[Hg] 78 mm[Hg] [facility] 10:59:58 Date Recorded Body height Body mass index (BMI) Body weight Systolic blood pressure Diastolic blood pressure Provider Name and Address Organization Details Last Updated DateTime 01/26/2024 158.75 cm 28.6 kg/m2 98546.19 g 134 mm[Hg] 85 mm[Hg] [facility] 12:21:43 Social History Question Answer Notes LastModified by Organizat ion Details LastModified Time Tobacco Smoking Status Current Every Day Smoker Delilah [email or web address], [facility] 06/06/2023 17:18:22 If You Are , What Was Your Level Of Alcohol Consumption Prior To ? Moderate [email or web address] Information not available 06/28/2023 How Many Years Have You Consumed Alcohol? 15 Information not available 06/06/2023 Are You Blind Or Do You Have Difficulty Seeing? No [email or web address] Information not available 06/28/2023 What Is Your Level Of Caffeine Consumption? Occasional Information not available 06/06/2023 How Much Tobacco Do You Chew? None Information not available 06/06/2023 In The 14 Days Before Symptom Onset, Have You Had Close Contact With A Laboratory-confir med COVID-19 While That Case Was Ill? No Information not available 06/06/2023 In The 14 Days Before Symptom Onset, Have You Had Close Contact With A Person Who Is Under Investigation For COVID-19 While That Person Was Ill? No Information not available 06/06/2023 Have You Been To An Area Known To Be High Risk For COVID-19? No Information not available 06/06/2023 Are You Deaf Or Do You Have Serious Difficulty Hearing? No Information not available 06/06/2023 What Type Of Diet Are You Following? REGULAR Information not available 06/06/2023 What Is The Highest Grade Or Level Of School You Have Completed Or The Highest Degree You Have Received? [id number] Information not available 06/06/2023 Are There Any Guns Present In Your Home? Yes Information not available 06/06/2023 Do You Use Protection During Sex? Usually Information not available 06/06/2023 Do You Use Your Seat Belt Or Car Seat Routinely? Yes Information not available 06/06/2023 Are You Sexually Active? Yes Information not available 09/20/2023 Do You Have Smoke And Carbon Monoxide Detectors In Your Home? Yes Information not available 06/06/2023 At What Age Did You Start Smoking Tobacco? 20 Information not available 06/06/2023 How Much Tobacco Do You Smoke? 0.5 PPD [email or web address] Information not available 06/26/2023 Do You Use Sunscreen Routinely? No Information not available 06/06/2023 How Many Years Have You Smoked Tobacco? 12 [email or web address] Information not available 06/26/2023 Have You Used IV Drugs? No Information not available 06/06/2023 Sex: Unknown Functional Status Question Answer Note LastModified by Organizat ion Details LastModified Time Do you use any illicit or recreational drugs? Yes Information not available 06/06/2023 What is your level of alcohol consumption? None [email or web address] Information not available 12/04/2023 Do you have difficulty walking or climbing stairs? No [email or web address] Information not available 06/28/2023 Are you able to walk? [email or web address] Information not available 06/06/2023 Are you able to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 bilateral salpingectomy for permanent sterilization. r/b discussed and tubal papers signed. Will plan for at least 6 weeks . Menstrual History Last Menstrual Date Menses Monthly On Bcp Conception Prior Menses Frequency Hcg Plus Date Menarche Onset Age 1103/30/2023 Genetic Screening And Infection History Question Response Note Mental Retardation/Autism false Patient's Age Will Be 35 Years Or Older At Estim ated Date of Delivery true Thalassemia (Nauruan, Peruvian, Mediterranean, Or Background): MCV < 80 false Neural Tube Defect (Meningomyelocele, Spina Bifi da, Or Anencephaly) false Congenital Heart Defect false Down Syndrome false Salty-Sachs (eg, Yarsanism, Cajun, Latvian-[place]ont) f alse Stephanie Disease false Sickle Cell Disease Or Trait () false Hemophilia Or Other Blood Disorders false Muscular Dystrophy false Cystic Fibrosis false Ashia's Chorea false Intellectual Disability/Autism false If Yes, Was Person Tested For Fragile X? false Other Inherited Genetic Or Chromosomal Disorder false Maternal Metabolic Disorder (eg, Type 1 Diabetes , PKU) false Patient Or Baby's Father Had A Child With Defects Not Listed Above false Recurrent Loss, Or A Stillbirth false Medications (including Suppl ements, Vitamins, Herbs, OTC Drugs), Illicit/Recreational Drugs, Alcohol false If Yes, Agent(s) And Strength/Dosage false Any Other Genetic History false Live With Someone With TB Or Exposed To TB false Patient Or Partner Has History Of Genital Herpes false Rash Or Viral Illness Since Last Menstrual Perio d false History Of STD, Gonorrhea, Chlamydia, HPV, Syphi lis false Other Infection History false History of HIV false History of Hepatitis false Prior GBS-infected child false Hemoglobinopathy Or Carrier false Other Structural Defect false Recent Travel History Outside of Country false Delivery Information Delivery Date Delivery Type Labor Anesthesia Weeks Gestation Incision Type Labor Labor Length Hrs Delivered By Post Complications Tubal Sterilization Discharge Date Comments 4 Induce d [facility] 39.1 Fab Lee MD Advanced maternal age ,F actor II deficienc y,Group B Streptoco ccus carrier,H istory of deep vein thrombosi s,Mixed anxiety and depressiv e disorder Discharge Information Feeding Method Contraceptive Method Maternal HG B and HCT Levels Ob Episode Information Episode Created Date Number of Fetuses Patient Bloodtype Patient rh Status Prepregnancy Weight lbs Domestic Partner Domestic Partner Phone Father Name Footwear Stitcher Status 06/06/19 24 1 CLOSED Fetus Data First Name Last Name Admitted to NICU Weight (g) Sex Living Outcome Pediatric Complications Fetus ID Race Codes Race Delivery Type 3259.96 [id number] M Full Term [id number] Vaginal Delivery Ghulam Calculation Initial Ghulam Date Initial Exam Date Initial Exam Provider Initial Ultrasound Date Last Menstrual Period Date Ultra Sound Weeks Gestation 0 Eighteen To Twenty Week Ghulam Update Ultra Sound Date Fundal Height At Umbil Quickening Date Ultra Sound Latest Weeks Gestation Final Ghulam Confirmed By Final Ghulam Confirmed Date Final Ghulam Date Ultra Sound Latest Days Gestation 0 0 Menstrual History Last Menstrual Date Menses Monthly On Bcp Conception Prior Menses Frequency Hcg Plus Date Menarche Onset Age Delivery Information Delivery Date Delivery Type Labor Anesthesia Weeks Gestation Incision Type Labor Labor Length Hrs Delivered By Post Complications Tubal Sterilization Discharge Date Comments 3 38 Discharge Information Feeding Method Contraceptive Method Maternal HG B and HCT Levels
--- OUTSIDE RECORDS SUMMARY | 2024-10-07 11:27 | XMS_ITS | Clinical Summary ---
Author Organization [facility] Address [address] [place] [address] Phone Care Team Providers Care Clipper Machine Operator Name Role Phone Cece Rios Primary Care Provider + Wang Stevenson MD Unavailable [phone] Allergies Active Allergy Reactions Criticality Noted Date Comments Aspirin Hives,Shortness of Breath 10/25/2010 Cephalexin Other (see Comments) 06/24/2022 Reaction as a child. Can not remember what the reaction was. Nsaids Swelling 03/27/2022 Medications Vit-Fe Fumarate-FA ( VITAMIN PO) Take 40 mg by mouth daily. Active sertraline (ZOLOFT) 50 MG TabletIndication s:Anxiety Take 1 Tablet by mouth daily. 90 Tablet 1 08/19/2024 Active hydrOXYzine (ATARAX) 25 MG Tablet Take 1 Tablet by mouth every 6 hours as needed for Anxiety. 30 Tablet 08/19/2024 Active methocarbamol (ROBAXIN) 750 MG Tablet Take 1 Tablet by mouth 4 times daily as needed (muscle spasm). 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 03/21/2024 as incidental finding 05/18/2023 History of anemia 07/26/2022 Acute deep vein thrombosis ( DVT) of tibial vein of left lower extremity 06/16/2022 On continuous oral anticoagulation 06/16/2022 Traumatic brain injury 09/20/2021 Left leg pain Encounters Date Type Department Care Team Description 08/19/2024 2:45 PM CDT [facility] Visit [facility] - [address] [place] [address] Cece Rios PAC Anxiety (Primary Dx); Heel pain, chronic, left; Screening cholesterol level; Screening for cardiovascular condition; Elevated MCV; Vitamin D deficiency Discharge Disposition: Discharged to home or Selfcare 08/19/2024 Travel 08/18/2024 Travel from Last 3 Months Immunizations Immunization Administration Dates Next Due Influenza Vaccine, Quadrivalent, PF 02/01/2023,1 06/15/2021,05/08/2018 Influenza Vaccine,unspecified Formulation 2017 Influenza, Seasonal, Injectable, Undefined 05/08 Influenza,Split Virus,Trivalent,Injectable,PF 08/19/2024 Pneumococcal Vaccine - 13 Valent 10/04/2021 Pneumococcal Vaccine, Unspec ified Formulation 10/04/2021 TDAP Vaccine 11/17/2023 Family History Medical History Relation Name Comments Heart Attack Father Danis High Cholesterol Father Danis Asthma Mother Sandra High Cholesterol Mother Sandra Hypertension Mother Sandra Cancer Paternal Grandfather Angel Leukemi a Migraines Paternal Grandmother Isabella Relation Name Status Comments Father Danis Mother Sandra Paternal Grandfather Angel Paternal Grandmother Isabella Social History Tobacco Use Types Packs/Day Years Used Date Smoking Tobacco: Every Day Cigarettes 0.5 15 Smokeless Tobacco: Never Tobacco Cessation:Ready to Q uit: Not Asked; Counseling Given: Not Answered Alcohol Use Standard Drinks/Week Comments Yes 10 (1 standard drink = 0.6 oz pure alcohol) Vodka cranberry throughout week [facility] Utilities Answer Date Recorded In the past 12 months has [employer], gas, oil, or water [employer] threatened to shut off services in your home? No 06/16/2024 Social Connection and Isolat ion Panel [NHANES] Answer Date Recorded In a typical week, how many times do you talk on the phone with family, friends, or neighbors? More than three times a week 06/16/2024 How often do you get togethe r with friends or relatives? Twice a week 06/16/2024 How often do you attend chur ch or anabaptist services? Never 06/16/2024 Do you belong to any clubs o r organizations such as episcopal groups, unions, fraternal or athletic groups, or school groups? No 06/16/2024 How often do you attend meet ings of the clubs or organizations you belong to? Never 06/16/2024 Are you , , di vorced, , never , or living with a partner? Patient declined 06/16/2024 AUDIT-C Answer Date Recorded Q1: How often do you have a drink containing alc ohol? Patient declined 06/16/2024 Q2: How many drinks containi ng alcohol do you have on a typical day when you are drinking? Patient declined 06/16/2024 Q3: How often do you have si x or more drinks on one occasion? Patient declined 06/16/2024 Overall Financial Resource Strain (CARDIA) Answe r Date Recorded How hard is it for you to pa y for the very basics like food, housing, medical care, and heating? Patient declined 06/16/2024 PHQ-2 Answer Date Recorded Total Score - Questions 1-9 4 07/28 [facility] - Occupational Stress Questionnaire Answer Date Recorded Do you feel stress - tense, restless, nervous, or anxious, or unable to sleep at night because your mind is troubled all the time - these days? Only a little 06/16/2024 Exercise Vital Sign Answer Date Recorde d On average, how many days pe r week do you engage in moderate to strenuous exercise (like a brisk walk)? 0 days 06/16/2024 On average, how many minutes do you engage in exercise at this level? 0 min 06/16/2024 Hunger Vital Sign Answer Date Recorded Within the past 12 months, y ou worried that your food would run out before you got the money to buy more. Never true 06/16/19 25 Within the past 12 months, t he food you bought just didn't last and you didn't have money to get more. Never true 06/16/2024 PRAPARE - Transportation Answer Date Re corded In the past 12 months, has l ack of transportation kept you from medical appointments or from getting medications? No 05/29 In the past 12 months, has l ack of transportation kept you from meetings, work, or from getting things needed for daily living? No 06/16/2024 Housing Stability Vital Sign Answer Abdi e Recorded In the last 12 months, was t here a time when you were not able to pay the mortgage or rent on time? No 06/12/2023 In the last 12 months, how many places have you lived? 2 06/12/2023 In the last 12 months, was t here a time when you did not have a steady place to sleep or slept in a intermediate (including now)? No 06/12/2023 Housing Stability Vital Sign Answer Abdi e Recorded In the last 12 months, was t here a time when you were not able to pay the mortgage or rent on time? No 06/16/2024 In the past 12 months, how m any times have you moved where you were living? 0 06/16/2024 At any time in the past 12 m [place], were you homeless or living in a intermediate (including now)? No 06/16/2024 Education Answer Date Recorded What is the highest level of school you have completed or the highest degree you have received? GED or equivalent Sexually Active Control Partners Comments Yes None Male Comments No Sex and Gender Information Value Date Recorded Sex Assigned at Not on file Legal Sex Female 5:41 PM CDT Gender Identity Not on file Sexual Orientation Not on file Last Filed Vital Signs Vital Sign Reading Time Taken Comments Blood Pressure 118/82 08/19/2024 2:33 PM CDT Pulse 90 08/19/2024 2:33 PM CDT Temperature 36.7 C (98 F) 08/19/2024 2:33 PM CDT Respiratory Rate 20 03/21/2024 9:18 AM CDT Oxygen Saturation 99% 08/19/2024 2:33 PM CDT Inhaled Oxygen Concentration - - Weight 73.5 kg (162 lb) 08/19/2024 2:33 PM CDT Height 158.8 cm (5' 2.5 ) 08/19/2024 2:33 PM CDT Body Mass Index 29.16 08/19/2024 2:33 PM CDT Plan of Treatment Upcoming Encounters Date Type Department Care Team (Late st Contact Info) Description 11/26/2024 11:00 AM CDT [facility] Visit [facility] [address] [place] [address] Cece Rios, PAC [address] [place] [address] Health Maintenance Due Date Last Done Comments Hepatitis B Immunization (1 of 3 - 19+ 3-dose series) 10/14/2006 Pneumococcal Immunization Combined (2 of 2 - PPSV23) 11/29/2021 10/04/2021, 10/04/2021 SARS-COV-2 Immunization (2 - season) 2024 06/14/2021 Pap Smear 06/16/2025 06/16/2022 Cervical Cancer Screening (CCS) 06/16/2027 HPV/Cotest 06/16/2027 06/16/2022 Td Immunization Every 10 Years (Adults With 1 Tdap) 11/16/2033 11/17/2023 Respiratory Syncytial Virus (RSV) Immunization (Adult) (1 - 1-dose 75+ series) 10/14/2062 Hepatitis C Virus (HCV) Screening Completed 06/26/2023 DTaP/Tdap/Td Immunization Discontinued 11/17/2023 TdaP Immunization Discontinued 11/17/2023 Influenza Immunization Completed , 02/01/2023, 04/15/2022, Additional history exists Meningococcal Immunization (ACWY) Aged Out No longer eligible based on patient's age to complete this topic Rotavirus Immunization Aged Out No lo nger eligible based on patient's age to complete this topic Procedures Procedure Name Priority Date/Time Associated Diagnosis Comments HUMAN PAPILLOMA VIRUS (HPV) Routine 06/16/2022 11:46 AM SADDLE STITCHER Well woman exam PATHOLOGY CYTOLOGY CASE BRIEFER Routine 06/16/2022 11:46 AM SADDLE STITCHER Well woman exam from Last 3 Months or Most Recently Relevant to Health Maintenance Results * PATHOLOGY CYTOLOGY CASE BRIEFER (06/16/2022 11:46 AM SADDLE STITCHER) SPECIMEN ADEQUACY Satisfactory for evaluation. Endocervical/transf ormation zone component is present. 06/22/2022 11:00 AM SADDLE STITCHER [facility] DESCRIPTIVE DIAGNOSIS NEGATIVE FOR INTRAEPITHELIAL LESIONS OR MALIGNANCY. 06/22/2022 11:00 AM SADDLE STITCHER [facility] at [address] SADDLE STITCHER HPV Reflex if ASCUS? No 06/22/2022 11:00 AM [facility] Comment:cotest Automated Examination Analysis of this sample has been assisted by an automated imaging and review system ([employer] System, [employer], [place], [place]). This case is further evaluated and finalized by a story writer and/or pathologist. 06/22/2022 11:00 AM [facility] Disclaimer The PAP smear is a screening test designed to detect cancerous or precancerous cells of the uterine cervix. It is one of the best means available for detection of cervical cancer but still carries an inherent false-negative rate. The consequences of a false-negative PAP result can be minimized by adhering to current screening guidelines. The following are general guidelines recommended by the ACS, ASCP, ASCCP, and ACOG: PAP testing is recommended every three years for women 21-29, Co-Testing , a PAP test in conjunction with an HPV (Human Papillomavirus) test for women ages 30-65, and no PAP or HPV testing for women under the age of 21 or older than 65 unless clinically indicated. 06/22/2022 11:00 AM SADDLE STITCHER [facility] Other CERVIX UTERI STRUCTURE / Unknown Non-Phlebotomy Collection / Unknown 06/16/2022 11:46 AM SADDLE STITCHER 06/16/2022 11:46 AM SADDLE STITCHER us Cece Rios PAC PATHOLOGY/CYTOLOGY ORDER BRENDEN Final Result [facility] [address] [place] [place] [address], * HUMAN PAPILLOMA VIRUS (HPV) (06/16/2022 11:46 AM SADDLE STITCHER) HPV OTHER HIGH RISK TYPES, PCR NEGATIVE NEGATIVE 06/20/2022 2:04 PM [facility] Comment: The following Other High Risk types were not detected: 31, 33, 35, 39, 45, 51, 52, 56, 58, 59, 66, and 68. A negative high-risk HPV result does not exclude the possibility of future cytologic HSIL or underlying CIN2-3 or cancer. The presence of PCR inhibitors may cause false negative or invalid results. If concentrations of whole blood in the sample exceed 1.5% (dark red or brown coloration) in PreservCyt solution, there is a likelihood of obtaining a false-negative result. HPV TYPE 16 NEGATIVE NEGATIVE 06/20/2022 2:04 PM [facility] Comment: A negative high-risk HPV result does not exclude the possibility of future cytologic HSIL or underlying CIN2-3 or cancer. The presence of PCR inhibitors may cause false negative or invalid results. If concentrations of whole blood in the sample exceed 1.5% (dark red or brown coloration) in PreservCyt solution, there is a likelihood of obtaining a false-negative result. HPV TYPE 18 NEGATIVE NEGATIVE 06/20/2022 2:04 PM [facility] Comment: A negative high-risk HPV result does not exclude the possibility of future cytologic HSIL or underlying CIN2-3 or cancer. The presence of PCR inhibitors may cause false negative or invalid results. If concentrations of whole blood in the sample exceed 1.5% (dark red or brown coloration) in PreservCyt solution, there is a likelihood of obtaining a false-negative result. HPV ORDER BE USED FOR SCREENING OR DIAGNOSTIC SCREENING 06/20/2022 2:04 PM [facility] Other Non-Phlebotomy Collection / Unknown 06/16/2022 11:46 AM SADDLE STITCHER 06/16/2022 11:46 AM [facility] - 06/20/2022 2:04 PM SADDLE STITCHER Performed by Real-Time Polymerase Chain Reaction (PCR) on the [employer]vin 4800. This assay has been validated for use with post-aliquot samples from the [employer] processor. us Cece Rios PAC LAB SEND OUTS Final Re sult Performing Organization Address [facility]/State/ZIP Co de Phone Number [facility] [address] [place] [address], [place] [facility] [address] [place] [address] from Last 3 Months or Most Recently Relevant to Health Maintenance Insurance [place] [address] MEDICARE C HERRON Care Teams Clipper Machine Operator Relationship Specialty Start Date End Date Cece Rios PAC [address] [place] [address] PCP - General Physician Returned Case Inspector 09/20/21 Wang Stevenson MD [address] [place] [address] Consulting Physician Medical Oncology 05/18/23
--- OUTSIDE RECORDS SUMMARY | 2024-10-07 11:27 | XMS_ITS | Encounter Summary ---
Author Organization [facility] Address [address] [place] [address] Phone Care Team Providers Care Emergency Medicine Medical Director Name Role Phone Cece Rios Primary Care Provider + Wang Stevenson MD Unavailable [phone] Reason for Visit * Reason Comments Medication Refill Encounter Details Date Type Department Care Team (Late st Contact Info) Description 12/04/2023 Refill [facility] - Family Medicine [facility] [address] [place] [address] Cece Rios PAC [address] [place] [address] Medication Refill Social History Tobacco Use Types Packs/Day Years Used Date Smoking Tobacco: Every Day Cigarettes 0.5 15 Smokeless Tobacco: Never Alcohol Use Standard Drinks/Week Comments Yes 10 (1 standard drink = 0.6 oz pure alcohol) Vodka cranberry throughout week [facility] Utilities Answer Date Recorded In the past 12 months has [employer] gas, oil, or water company threatened to shut off services in your home? No 06/12/2023 Social Connection and Isolat ion Panel [NHANES] Answer Date Recorded In a typical week, how many times do you talk on the phone with family, friends, or neighbors? More than three times a week 06/12/2023 How often do you get togethe r with friends or relatives? Twice a week 06/12/2023 How often do you attend chur ch or yazidism services? Never 06/12/2023 Do you belong to any clubs o r organizations such as mormon groups, unions, fraternal or athletic groups, or school groups? No 06/12/2023 How often do you attend meet ings of the clubs or organizations you belong to? Never 06/12/2023 Are you , , di vorced, , never , or living with a partner? Patient declined 06/12/2023 AUDIT-C Answer Date Recorded Q1: How often do you have a drink containing alc ohol? Patient declined 06/12/2023 Q2: How many drinks containi ng alcohol do you have on a typical day when you are drinking? Patient declined 06/12/2023 Q3: How often do you have si x or more drinks on one occasion? Patient declined 06/12/2023 Overall Financial Resource Strain (CARDIA) Answe r Date Recorded How hard is it for you to pa y for the very basics like food, housing, medical care, and heating? Not very hard 06/12/2023 PHQ-2 Answer Date Recorded Total Score - Questions 1-9 0 08/28 [facility] - Occupational Stress Questionnaire Answer Date Recorded Do you feel stress - tense, restless, nervous, or anxious, or unable to sleep at night because your mind is troubled all the time - these days? To some extent 06/12/2023 Exercise Vital Sign Answer Date Recorde d On average, how many days pe r week do you engage in moderate to strenuous exercise (like a brisk walk)? 0 days 06/12/2023 On average, how many minutes do you engage in exercise at this level? 0 min 06/12/2023 Hunger Vital Sign Answer Date Recorded Within the past 12 months, y ou worried that your food would run out before you got the money to buy more. Never true 06/12/19 24 Within the past 12 months, t he food you bought just didn't last and you didn't have money to get more. Never true 06/12/2023 PRAPARE - Transportation Answer Date Re corded In the past 12 months, has l ack of transportation kept you from medical appointments or from getting medications? No 05/29 In the past 12 months, has l ack of transportation kept you from meetings, work, or from getting things needed for daily living? No 06/12/2023 Housing Stability Vital Sign Answer [...] place to sleep or slept in a correction (including now)? No 06/12/2023 Education Answer Date Recorded What is the highest level of school you have completed or the highest degree you have received? GED or equivalent Sexually Active Control Partners Comments Yes None Male Comments Yes Sex and Gender Information Value Date Recorded Sex Assigned at Not on file Legal Sex Female 5:41 PM CDT Gender Identity Not on file Sexual Orientation Not on file documented as of this encounter Miscellaneous Notes * Telephone Encounter - Marilin Quezada RN - 12/04/2023 10:53 AM CDT Name from pharmacy: SERTRALINE 100MG TABLETS Will file in chart as: sertraline (ZOLOFT) 100 MG Tablet The original prescription was discontinued on 06/14/2023 by Cece Rios PAC documented in this encounter Plan of Treatment Upcoming Encounters Date Type Department Care Team (Late st Contact Info) Description 11/26/2024 11:00 AM CDT Office Visit [facility] - Family [facility] [address] [place] [address] Cece Rios, W[address] [place] [address] documented as of this encounter Visit Diagnoses Diagnosis Anxiety Anxiety state, unspecified documented in this encounter Care Teams Emergency Medicine Medical Director Relationship Specialty Start Date End Date Cece Rios PAC [address] [place] [address] PCP - General Physician Casing Splitter 09/20/21 Wang Stevenson MD [address] [place] [address] Consulting Physician Medical Oncology 05/18/23 documented as of this encounter
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
[2024-10-07 11:48] LABS: EDCOVIDSCREEN Negative (Negative); EDINFLUASCREEN Negative (Negative); EDINFLUBSCREEN Negative (Negative); EDSTREPNEGPOS1 Positive (Negative)
== END 2024-10-07 12:38 | disposition home or self-care (01) ==
PROVIDERS: Emergency Provider Registered Nurse; PCP Physician Assistant
DX: J02.0 Streptococcal pharyngitis (principal); Z20.822 Contact with and (suspected) exposure to COVID-19; F17.210 Nicotine dependence, cigarettes, uncomplicated; D68.2 Hereditary deficiency of other clotting factors; Z86.718 Personal history of other venous thrombosis and embolism; Z87.820 Personal history of traumatic brain injury
CPT/HCPCS: 87426; 87804; 87880; 99213; G0463

== ENCOUNTER 2025-02-21 08:05 | Emergency (ER) | payer OTHER, SELFPAY ==
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
--- OUTSIDE RECORDS SUMMARY | 2025-02-21 08:08 | XMS_ITS | Data Portability ---
Author Organization [facility] [place] Address [address] [place] [address] [place] [address] Care Team Providers Care Jr. Systems Administrator Name Role Phone JOSETTE PORTER Primary Care Provider Assessment No assessment recorded. Plan of Treatment Reminders Order Date Submit Date Provider Last Modified By Organization Details Last Modified Time Details Appointments None recorded. Lab None recorded. Referral None recorded. Procedures None recorded. Surgeries None recorded. Imaging non-stress test 2023 024 [email or web address] [place], [address], [place], [address], 4 02:21:52 US, obstetric, biophysical profile + non-stress test 2023 024 [email or web address] [place], [address], [place], [address], 4 22:01:51 US, doppler, umbilical artery velocimetry 2023 024 [email or web address] [place], [address], [place], [address], 4 22:01:51 non-stress test 2023 024 [email or web address], [address], [place], [address], 09:23:10 Medication Orders None recorded. Patient TargetsNo targets recorded. Patient InstructionsNo instructions recorded. Reason for Referral None Reported. Results Created Date Observation Date Name Description Value Unit Range Abnormal Flag Note LastModifiedBy Organization Detail LastModifiedTime 12/04/19 24 12/04/2023 CBC W/DIF F WBC 11.3 10'3/ uL 3.5-10 .5 high Not Available [facility] (Lab) [address], [place], [address], 12/05/2023 06:23:00 12/04/19 24 12/04/2023 CBC W/DIF F RBC 3.65 10'6/ uL (based on docume nted legal sex) 3.80-5 .20 low Not Available [facility] (Lab) [address], [place], [address], 12/05/2023 06:23:00 12/04/19 24 12/04/2023 CBC W/DIF F HGB 11.7 g/dL (based on docume nted legal sex) 11.6-1 5.4 Not Available [facility] (Lab) [address] [place], [address], 12/05/2023 06:23:00 12/04/19 24 12/04/2023 CBC W/DIF F HCT 36.9 % (based on docume nted legal sex) 34.0-4 5.0 Not Available [facility] (Lab) [address] [place], [address], 12/05/2023 06:23:00 12/04/19 24 12/04/2023 CBC W/DIF F MCV 101.1 fL 80.0-9 9.0 high Not Available [facility] (Lab) [address] [place], [address], 12/05/2023 06:23:00 12/04/19 24 12/04/2023 CBC W/DIF F MCH 32.1 pg 27.0-3 4.0 Not Available [facility] (Lab) [address], [place], [address], 12/05/2023 06:23:00 12/04/19 24 12/04/2023 CBC W/DIF F MCHC 31.7 g/dL 32.0-3 5.5 low Not Available [facility] (Lab) [address] [facility], [place], [address], 12/05/2023 06:23:00 12/04/19 24 12/04/2023 CBC W/DIF F RDW 15.3 % 11.0-1 5.0 high Not Available [facility] (Lab) [address] [facility], [place], [address], 12/05/2023 06:23:00 12/04/19 24 12/04/2023 CBC W/DIF F plt 192 10'3/ uL 150-40 0 Not Available [facility] (Lab) [address] [facility], [place], [address], 12/05/2023 06:23:00 12/04/19 24 12/04/2023 CBC W/DIF F MPV 12.0 fL 8.8-12 .1 Not Available [facility] (Lab) [address] [facility], [place], [address], 12/05/2023 06:23:00 12/04/19 24 12/04/2023 CBC W/DIF F NRBC's 0.0 % 0.0 Not Available [facility] (Lab) [address] [facility], [place], [address], 12/05/2023 06:23:00 12/04/19 24 12/04/2023 CBC W/DIF F absolute NRBCs 0.0 10'3/ uL no refere nce range establ ished Not Available [facility] (Lab) [address] [facility], [place], [address], 12/05/2023 06:23:00 12/04/19 24 12/04/2023 CBC W/DIF F neutrophils 72.6 % 34.0-7 3.0 Not Available [facility] (Lab) [address] [facility], [place], [address], 12/05/2023 06:23:00 12/04/19 24 12/04/2023 CBC W/DIF F lymphocytes 17.5 % 15.0-5 0.0 Not Available [facility] (Lab) [address] [facility], [place], [address], 12/05/2023 06:23:00 12/04/19 24 12/04/2023 CBC W/DIF F monocytes 8.4 % 1.0-15 .0 Not Available [facility] (Lab) [address] [place], [address], 12/05/2023 06:23:00 12/04/19 24 12/04/2023 CBC W/DIF F eosinophils 0.8 % 0.0-8. 0 Not Available [facility] (Lab) [address] [facility], [place], [address], 12/05/2023 06:23:00 12/04/19 24 12/04/2023 CBC W/DIF F basophils 0.2 % 0.0-2. 0 Not Available [facility] (Lab) [address] [facility], [place], [address], 12/05/2023 06:23:00 12/04/19 24 12/04/2023 CBC W/DIF F immature granulocytes 0.5 % no define d refere nce range Not Available [facility] (Lab) [address] [facility], [place], [address], 12/05/2023 06:23:00 12/04/19 24 12/04/2023 CBC W/DIF F absolute neutrophils 8.2 10'3/ uL 1.5-8. 0 high Not Available [facility] (Lab) [address] [place], [address], 12/05/2023 06:23:00 12/04/19 24 12/04/2023 CBC W/DIF F absolute lymphocytes 2.0 10'3/ uL 1.0-4. 0 Not Available [facility] (Lab) [address] [facility], [place], [address], 12/05/2023 06:23:00 12/04/19 24 12/04/2023 CBC W/DIF F absolute monocytes 1.0 10'3/ uL 0.2-1. 0 Not Available [facility] (Lab) [address] [facility], [place], [address], 12/05/2023 06:23:00 12/04/19 24 12/04/2023 CBC W/DIF F absolute eosinophils 0.1 10'3/ uL 0.0-0. 6 Not Available [facility] (Lab) [address] [facility], [place], [address], 12/05/2023 06:23:00 12/04/19 24 12/04/2023 CBC W/DIF F absolute basophils 0.0 10'3/ uL 0.0-0. 3 Not Available [facility] (Lab) [address] [facility], [place], [address], 12/05/2023 06:23:00 12/04/19 24 12/04/2023 CBC W/DIF F absolute immature granulocytes 0.1 10'3/ uL 0.00-0 .10 4:53 AM: P indic ates parti al resul ts on a panel have been relea sed. Addit ional resul ts will follo w. 4:53 AM: This resul t has been final verif ied. No addit ional or melendez ed resul ts are expec britt. Not Available [facility] (Lab) [address] [facility], [place], [address], 12/05/2023 06:23:00 12/04/19 24 12/04/2023 BHAVESH TIN / IRON / TRANS BHAVESH N / TIBC iron 169 ug/dL 40-170 Not Available [facility] (Lab) [address] [facility], [place], [address], 12/05/2023 06:23:01 12/04/19 24 12/04/2023 BHAVESH TIN / IRON / TRANS BHAVESH N / TIBC transferrin 482 mg/dL 200-36 0 high Not Available [facility] (Lab) [address] [facility], [place], [address], 12/05/2023 06:23:01 12/04/19 24 12/04/2023 BHAVESH TIN / IRON / TRANS BHAVESH N / TIBC ferritin 49.7 NG/mL 8.0-25 2.0 Not Available [facility] (Lab) [address] [facility], [place], [address], 12/05/2023 06:23:01 12/04/19 24 12/04/2023 BHAVESH TIN / IRON / TRANS BHAVESH N / TIBC TIBC 675 ug/dL 250-45 0 high Not Available [facility] (Lab) [address] [facility], [place], [address], 12/05/2023 06:23:01 12/04/19 24 12/04/2023 BHAVESH TIN / IRON / TRANS BHAVESH N / TIBC iron saturation 25 % 20-55 Not Available [facility] (Lab) [address] [place], [address], 12/05/2023 06:23:01 12/04/19 24 12/04/2023 CULTU RE: [...] Resul ting Lab: [facility] [address] [facility] [address] Tel: CULTU RE ----- ----- ----- --- [...] lab withi n 5 days. Not Available [facility] (Lab) [address], [place], [address], 12/06/2023 15:33:39 11/20/19 24 11/20/2023 US, obste tric, follo w-up No observ ation record ed. [email or web address] [place] [address], [place], [address], 11/20/2023 13:09:35 11/20/19 24 11/20/2023 US, obste tric, follo w-up No observ ation record ed. [email or web address] [address] [facility], [place], [address], 11/21/2023 12:49:00 12/12/19 24 12/12/2023 US, obste tric, follo w-up No observ ation record ed. [email or web address] [place] [address], [place], [address], 12/12/2023 12:58:18 12/12/19 24 12/12/2023 US, obstrose tric, bioph ysica l profi le No observ ation record ed. [email or web address] [place] [address], [place], [address], 12/12/2023 12:58:09 12/12/19 24 12/12/2023 US, doppl er, umbil ical arter y veloc imetr y No observ ation record ed. [email or web address] [place] [address], [place], [address], 12/12/2023 12:58:00 12/12/19 24 12/12/2023 US, obste tric, follo w-up No observ ation record ed. [email or web address] [address], [place], [address], 12/14/2023 01:01:30 12/20/19 24 12/20/2023 US, obste tric, bioph ysica l profi le + non-s tress test No observ ation record ed. [email or web address] [place] [address], [place], [address], 12/20/2023 13:08:50 12/20/19 24 12/20/2023 US, doppl er, umbil ical arter y veloc imetr y No observ ation record ed. [email or web address] [place] [address], [place], [address], 12/20/2023 13:08:41 12/20/19 24 12/20/2023 US, obste tric, bioph ysica l profi le + non-s tress test No observ ation record ed. [email or web address] [address], [place], [address], 12/20/2023 22:40:20 12/20/19 24 12/20/2023 non-s tress test No observ ation record ed. [email or web address] [place] [address], [place], [address], 12/20/2023 18:37:25 12/26/19 24 12/26/2023 US, obste tric, bioph ysica l profi le + non-s tress test No observ ation record ed. [email or web address] [place] [address], [place], [address], 12/26/2023 12:45:18 12/26/19 24 12/26/2023 US, doppl er, umbil ical arter y veloc imetr y No observ ation record ed. [email or web address] [place] [address], [place], [address], 12/26/2023 12:45:29 12/26/19 24 12/26/2023 US, obste tric, bioph ysica l profi le + non-s tress test No observ ation record ed. [address], [place], [address], 12/27/2023 08:12:37 12/26/19 24 12/26/2023 non-s tress test No observ ation record ed. [email or web address] [place] [address], [place], [address], 12/26/2023 16:42:58 04/11/20 24 04/11/2024 non-s tress test No observ ation record ed. [address], [place], [address], 04/11/2024 14:31:17 Result Notes None recorded. Problems Name Problem SNOMED Code Status Onset Date Resolution Date Notes Provider Name and Address Organization Details Recorded Time Advanced maternal age 316079159 Active no ASA ppx 2/2 allergy FAB IFNNEY MD [address], [place], [address], [place] [facility] 4 11:20:53 Lupus anticoag ulant disorder 09972111 Active followed by heme/onc Dr Elva FINNEY MD [address], [place], [address], [place] [facility] 4 23:08:21 Mixed anxiety and depressi ve disorder 989030209 Active d/c'd meds with pregnanc y, previous ly on zoloft and hydroxyz karen FINNEY MD [address], [place], [address], [facility] 4 11:20:53 Advanced maternal age 990761431 Completed no ASA ppx 2/2 allergy FAB FINNEY MD [address], [place], [address], [facility] 4 11:20:53 Mixed anxiety and depressi ve disorder 176670952 Completed d/c'd meds with pregnanc y, previous ly on zoloft and hydroxyz karen FINNEY MD [address], [place], [address], [facility] 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 4 11:20:53 Factor II deficien cy 82582652 Completed lovenox 40 BID FAB FINNEY MD [address], [place], [address], [facility] 4 11:20:53 Group B Streptoc occus carrier 5084752681 103 Completed tx in labor FAB FINNEY MD [address], [place], [address], [facility] 4 11:20:53 Atypical squamous cells of undeterm ined signific ance on cervical Papanico laou smear 882016992 Active 2014 Papanico laou smear of cervix with atypical squamous cells of undeterm ined signific ance (ASC-US) ;Recorde d Elsewher e: No Locat ion: Migdalia rose [facility] S ource: [facility] itzel: N Practi ce ID: [email or web address] Ronal lable Time: 02:45:32 PM Not Available [facility] 0 18:20:05 History of deep vein thrombos is 723983161 Active 2022 on prophyla ctic lovenox 40mg BID, MFM consult sent, plan for ppx lovenox through pregnanc y, heparin at 36 weeks and x6 weeks postpart lisa FINNEY MD [address], [place], [address], [facility] 4 11:20:53 History of deep vein thrombos is 990620241 Completed 2022 on prophyla ctic lovenox 40mg BID, MFM consult sent, plan for ppx lovenox through pregnanc y, heparin at 36 weeks and x6 weeks postpart FAB FINNEY MD [address], [place], [address], [facility] 4 11:20:53 Pregnanc y 63615046 Completed 202301/01/[address] [facility] 4 12:21:04 Problem Notes None recorded. Procedures Surgical History Date Name Laterality Status Provider Name and Address Organization Details Recorded Time 023 Date of Last Pap Smear completed Antonella Ortiz [facility] 09/20/2023 10:42:25 005 procedure on knee completed Kristina Leiva [facility] 06/28/2023 20:29:53 005 hyperventilation therapy for traumatic brain injury completed Kristina Leiva [facility] 06/28/2023 20:30:50 Imaging Results None recorded. Procedure Notes None recorded. Medical Equipment None Reported. Allergies Allergen ID Allergen Name Allergen Category Reaction Reaction Severity Criticality Documentation Date Start Date Code Code System Note Provider Name and Address Organization Details Recorded Time 59519 aspirin medicatio n anaphylax is Not available Not available 05/15/2020 1191 RxNorm [address] [facility] 4 17:16:13 49424 Keflex medicatio n other moderate Not available 11/02/2023 7 RxNorm Julia Batista [place], [place] - [facility] 4 11:15:40 Medications Name Sig Start [...] oral route every day 06/06 completed Prescrib aravind Crowder e: Yes Loca tion: [facility] M odify By: amkuhnelson Rose ncountcharlotte DateTime : 12/06/19 02:00:00 PM Not Available Not Available Not [...] mcg (50,000 unit) capsule take 1 capsule ([id number] ITS) by oral route every week 07/22 completed Prescrib ed Elsewher e: No Locat ion: [facility] odify By: carie maldonado DateTime : 08/28/19 13 08:15:02 AM Not Available Not Available Not Available heparin (porcine) 10,000 unit/mL injection solution INJECT 1 ML TWICE DAILY DIRECTED 12/30 completed Not Available Not Available Not Available [place] 5 mg-325 mg tablet take 1 tablet by oral route every 6 hours as needed for pain 03/26 completed Prescrib ed Elsewher e: No [facility]at [facility]ify By: carie maldonado DateTime : 02/29/20 [...] Prescrib ed Elsewher e: No [facility] By: carie maldonado DateTime : 08/23/19 [...] ed Elsewher e: Yes Loca tion: [facility] odify By: carie maldonado DateTime : [...] Prescrib ed Elsewher e: No Locat ion: [facility] odify By: yoana lehmanunter DateTime : 08/19/19 15 10:00:00 AM Not Available Not Available Not Available BD Regular Bevel [place] 25 gauge x 5/8 USE TWICE DAILY DIRECTED WITH HEPARIN 12/30 completed Not Available Not Available Not Available Lutera (28) 0.1 mg-20 mcg tablet TAKE 1 TABLET BY MOUTH ONCE DAILY- SKIP PLACEBOS AND START NEW PACK 03/30 completed Prescrib ed Elsewher e: No Locat ion: [facility] odify By: yoana lehmanuntcharlotte DateTime : 11/18/19 15 04:49:42 PM Not Available Not Available Not Available iron 01/25 completed Not Available Not Available Not Available 10 mg-[address] by Topical route every USE ASS NEEDED WITH INTERCOU RSE 07/22 completed Prescrib ed Elsewher e: Yes Loca tion: Ayeloren rose [facility] odify By: carie lehmanuntcharlotte DateTime : 03/26/20 13 10:30:00 AM Not Available Not Available Not Available Daily 06/26 completed Not Available Not Available Not Available Lo Loestrin Fe 1 mg-10 mcg (24)/10 mcg (2) tablet take 1 tablet by oral route every day. Skip placebo pills and start new pack. 04/08 completed Prescrib ed Elsewher e: No [facility]at [facility]: [facility] odify By: patrick Lewis er DateTime : 04/07/20 14 10:28:09 AM Not Available Not Available Not Available Xarelto 20 mg tablet TAKE 1 TABLET BY MOUTH DAILY WITH DINNER FOR BLOOD CLOT IN VEINS 06/06 completed Not Available Not Available Not Available 28 mg iron-800 mcg tablet 01/25 completed Prescrib ed Elsewher e: Yes Loca tion: [facility] odify By: amkuhl E ncounter DateTime : 11/18/19 17 04:30:00 PM Not Available Not Available Not Available Xarelto DVT-PE Treatment 30-Day Starter 15 mg(42)-20 mg(9) tablet pack TAKE DIRECTED 06/06 completed Not Available Not Available Not Available Seasonale (91) 0.15 mg-30 mcg tablets,3 month dose pack take 1 tablet by oral route every day 04/08 completed Prescrib ed Elsewher e: No Locat ion: [facility] M odify By: cmedical Encount er DateTime : 12/20/19 14 01:27:35 PM Not Available Not Available Not Available Vitals Date Recorded Body weight Provider Name an d Address Organization Details Last Updated DateTime 12/20/2023 25441.35172 g Marcel BORDEN [facility] [place][note 2] [address], [place], [address], [facility] 12/20/2023 11:01:19 Date Recorded Systolic And Diastolic Provider Name and Address Organization Details Last Updated DateTime 12/20/2023 109/76 mm[Hg] Paz Rico [facility] 12/20/2023 10:40:36 Date Recorded Body height Body mass index (BMI) Provider Name and Address Organization Details Last Updated DateTime 12/20/2023 158.75 cm 32.6 kg/m2 [facility] 12/20/2023 10:42:59 Date Recorded Body height Body mass index (BMI) Body weight Systolic And Diastolic Provider Name and Address Organization Details Last Updated DateTime 12/26/2023 158.75 cm 32.2 kg/m2 94731.03 g 109/78 mm[Hg] [facility] 12/26/2023 10:59:58 Date Recorded Body height Body mass index (BMI) Body weight Systolic And Diastolic Provider Name and Address Organization Details Last Updated DateTime 01/26/2024 158.75 cm 28.6 kg/m2 19998.19 g 134/85 mm[Hg] Julia Batista [facility] 01/26/2024 12:21:43 Social History Question Answer Notes LastModified by Organizat ion Details LastModified Time Tobacco Smoking Status Current Every Day Smoker Delilah [email or web address], [facility] 06/06/2023 17:18:22 If You Are , What Was Your Level Of Alcohol Consumption Prior To ? Moderate [email or web address] Information not available 06/28/2023 How Many Years Have You Consumed Alcohol? 15 Information not available 06/06/2023 Are You Blind Or Do You Have Difficulty Seeing? No [email or web address] Information not available 06/28/2023 What Is Your [...] Or The Highest Degree You Have Received? [id number] Information not available 06/06/2023 Are There Any Guns Present In Your Home? Yes Information not available 06/06/2023 Do You Use Protection During Sex? Usually Information not available 06/06/2023 Do You Use Your Seat Belt Or Car Seat Routinely? Yes Information not available 06/06/2023 Are You Sexually Active? Yes [email or web address] Information not available 09/20/2023 Do You Have Smoke And Carbon Monoxide Detectors In Your Home? Yes Information not available 06/06/2023 At What Age Did You Start Smoking Tobacco? 20 Information not available 06/06/2023 How Much Tobacco Do You Smoke? 0.5 PPD [email or web address] Information not available 06/26/2023 Do You Use Sunscreen Routinely? No Information not available 06/06/2023 How Many Years Have You Smoked Tobacco? 12 [email or web address] Information not available 06/26/2023 Have You Used IV Drugs? No Information not available 06/06/2023 Do You Have Difficulty Walking Or Climbing Stairs? No [email or web address] Information not available 06/28/2023 Sex: Unknown Functional Status Question Answer Note LastModified by Organizat ion Details LastModified Time Do you use any illicit or recreational drugs? Yes Information not available 06/06/2023 What is your level of alcohol consumption? None [email or web address] Information not available 12/04/2023 Are you able to walk independently without assistance or assistive devices? YESWOREST Information not available 06/06/2023 Are you able to care for yourself independently? Yes [email or web address] Information not available 06/28/2023 What is your occupation? Stay at home mom Information not available 06/06/2023 Do you have difficulty dressing, bathing, grooming, or toileting? No [email or web address] Information not available 06/28/2023 What is your exercise level? Moderate [email or web address] Information not available 06/26/2023 Mental Status Question Answer Note LastModified by Organization D etails LastModified Time Do you feel stressed (tense, restless, nervous, or anxious, or unable to sleep at night)? [id number] Information not available 06/06/2023 Family History Relationship Description Onset Age of this Age Resolved Age Notes LastModified by Organization Details LastModified Time Paternal Grandmother Disorder of lung [email or web address] Not available 06/26 11:01:00 Mother Asthma [email or web address] Not available 06/26/2023 11:01:00 Mother Anemia [email or web address] Not available 11:29:25 Mother Heart disease [email or web address] Not available 06/26 11:01:00 Father Disorder of lung [email or web address] Not available 06/26 11:01:00 Father Myocardial infarction Not available 05/30 11:01:00 Father Heart disease Not available 06/26 11:01:00 Maternal Aunt Malignant [...] Diagnosis SNOMED-CT Code Diagnosis ICD10 Code Diagnosis IMO Codes Diagnosis Note [id number] Donny Frances MD [place] [address],[place] [address] 06/06/2023 16:09:14 06/06/2023 17:01:15 [id number] Donny Frances MD [place] [address],[place] [address] 06/06/2023 16:12:26 06/07/2023 14:07:25 Amenorrhea 17670637 N91.2 this is a 37 year old [...] will begin routine care in 3 weeks. [id number] Donny Frances MD [place] [address],[place] [address] 06/26/2023 10:07:10 06/26/2023 10:45:03 screening 627467634 Z36.82 Z3A.12 [id number] FAB FINNEY MD [place] [address],[place] [address] 06/26/2023 10:08:02 06/26/2023 11:38:18 Gestation period, 12 weeks 75169969 Z3A.12 Advanced m aternal age 818720571 O09.521 History of deep vein thrombosis 394284386 Z86.718 Lupus anti coagulant disorder 84075401 D68.62 Mixed anxi ety and depressive disorder 934883207 F41.8 [id number] FAB FINNEY MD [place] [address],[place] [address] 07/24/2023 09:56:27 07/24/2023 10:40:42 Nausea and vomiting 38664466 R11.2 History of deep vein thrombosis 705773950 Z86.718 Gestation period, 16 weeks 18477349 Z3A.16 Advanced m aternal age 593121453 O09.521 Mixed anxi ety and depressive disorder 401955633 F41.8 [id number] FAB FINNEY MD [place] [address],[place] [address] 08/22/2023 10:12:30 08/23/2023 09:22:09 Advanced maternal age 675572585 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 739 32423 D68.2 History of deep vein thrombosis 326906478 Z86.718 Mixed anxi ety and depressive disorder 723462055 F41.8 Gestation period, 20 weeks 59953357 Z3A.20 [id number] FAB FINNEY MD [place] [address],[place] [address] 09/20/2023 09:50:33 09/20/2023 12:18:09 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 899577820 Z76.89 Anemia 981962685 D64.9 Advanced m aternal age 411492379 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 739 30901 D68.2 Lupus anti coagulant disorder 54527238 D68.62 Gestation period, 24 weeks 414730035 Z3A.24 [id number] FAB FINNEY MD [place] [address],[place] [address] 11/02/2023 10:55:42 11/02/2023 13:36:14 Internal hemorrhoids 65875711 K64.8 Advanced m aternal age 476677134 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 739 00866 D68.2 History of deep vein thrombosis 879994080 Z86.718 Mixed anxi ety and depressive disorder 814891978 F41.8 Gestation period, 31 weeks 57342445 Z3A.31 [id number] Donny Frances MD [place] [address],[place] [address] 11/20/2023 11:54:16 11/20/2023 12:52:59 Advanced maternal age 058673310 O09.523 Z3A.33 [id number] FAB FINNEY MD [place] [address],[place] [address] 11/20/2023 11:54:50 11/20/2023 13:19:05 Advanced maternal age 618037550 O09.523 Z3A.33 Factor II deficiency 739 72934 D68.2 History of deep vein thrombosis 004644434 Z86.718 Mixed anxi ety and depressive disorder 096087750 F41.8 Gestation period, 33 weeks 71044466 Z3A.33 [id number] FAB FINNEY MD [place] [address],[place] [address] 12/04/2023 11:44:49 12/04/2023 12:24:41 Advanced maternal age 428635526 O09.523 Z3A.33 History of deep vein thrombosis 368523514 Z86.718 Factor II deficiency 739 78277 D68.2 Mixed anxi ety and depressive disorder 531643736 F41.8 Anemia of 2734 2004 O99.019 Gestation period, 35 weeks 21848537 Z3A.35 [id number] Donny Frances MD [place] [address],[place] [address] 12/12/2023 10:19:13 12/12/2023 11:36:39 Small for gestational age fetus 329536844 O36.5930 O09.523 O99.891 Z3A.36 [id number] FAB FINNEY MD [place] [address],[place] [address] 12/12/2023 10:19:32 12/14/2023 09:28:37 Advanced maternal age 277217140 O09.523 Z3A.33 Factor II deficiency 739 36845 D68.2 - continue heparin History of deep vein thrombosis 239445866 Z86.718 - continue heparin Mixed anxi ety and depressive disorder 069196922 F41.8 Gestation period, 36 weeks 97564560 Z3A.36 - continue vitamin [id number] FAB FINNEY MD [place] [address],[place] [address] 12/20/2023 09:22:50 12/21/2023 09:23:10 Small for gestational age fetus 148112480 O36.5999 Z3A.37 [id number] Donny Frances MD [place] [address],[place] [address] 12/20/2023 09:24:58 12/20/2023 10:31:13 Small for gestational age fetus 130664866 O36.5930 O09.523 O99.891 Z3A.37 [id number] FAB FINNEY MD [place] [address],[place] [address] 12/20/2023 09:25:10 12/20/2023 11:34:52 Advanced maternal age 193287034 O09.523 Z3A.33 Factor II deficiency 739 06924 D68.2 - continue heparin History of deep vein thrombosis 443142561 Z86.718 - continue heparin Lupus anti coagulant disorder 71778288 D68.62 Mixed anxi ety and depressive disorder 033686457 F41.8 Gestation period, 37 weeks 20582260 Z3A.37 - continue vitamin [id number] Donny Frances MD [place] [address],[place] [address] 12/26/2023 09:48:52 12/26/2023 11:39:25 Small for gestational age fetus 752413666 O36.5930 O09.523 O99.891 Z3A.38 [id number] Donny Frances MD [place] [address],[place] [address] 12/26/2023 09:49:10 12/26/2023 10:25:11 Small for gestational age fetus 515367873 O36.5930 O09.523 O99.891 Z3A.38 [id number] FAB FINNEY MD [place] [address],[place] [address] 12/26/2023 09:49:34 12/26/2023 11:39:15 Advanced maternal age 315957740 O09.523 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 Also discussed alternativ e contracept frankie options including partner vasectomy and patient declines.- tubal papers signed Gestation period, 38 weeks 45881159 Z3A.38 [id number] FAB FINNEY MD [place] [address],[place] [address] 01/26/2024 11:52:03 01/26/2024 13:37:56 care 406269704 Z39.2 S/p 4 weeks ago here today for a visit.1. Patient recovering well2. Plans to continue formula feeding3. Interested in bilateral salpingect brandin for contracept ion at this time. Risks, benefits, and alternativ es reviewed with the patient4. 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- will call with belinda dasilva and plan for surgery after hematologi st appointmen t Health Concerns Section Related Observation LastModified by Organization Detai ls LastModified Time None Recorded Concern Status LastModified by Organization Details LastModified Time None Recorded Advance Directives Directive None Recorded Payers Insurance Date Sequence Insurance Name Policy Number Policy Myers Covered Member ID Myers Member ID Guarantor Name 04/28/2024 1 [facility] (MEDICARE REPLACEMENT/ ADVANTAGE - HMO) [id number] August Rodrick [id number] Madina Rodrick 10/30/2023 2 [facility] (MEDICAID HMO) [id number] August Rodrick [id number] August Rodrick 10/29/2023 2 [place] Madina Mensah [id number] Madina Marcel Mensah 10/29/2023 1 [facility] (MEDICAID HMO) [id number] Madina Marcel Mensah [id number] Madina Mensah 10/29/2023 2 [place] Madina Mensah [id number] Madina Mensah Notes Date Note Type Note Provider Name and Address Organization Details Recorded Time 12/20/2023 text/html OB ProblemReport ed by Patient Paz mazariegos, [facility] 12/20/2023 18:36:33 12/20/2023 text/html Generic HPI TemplateReported by Patient FAB FINNEY MD [address], [place], [address], [facility] 12/20/2023 11:22:09 12/26/2023 text/html Generic HPI TemplateReported by Patient FAB FINNEY MD [address], [place], [address], [facility] 12/26/2023 11:37:37 01/26/2024 text/html VisitReported by Patient S/P on 12/29/23 at 39 weeks gestation. was complicated by [...] ligation. FAB FINNEY MD [address], [place], [address], [facility] 01/26/2024 13:08:25 OBGyn Episode Ob Episode Information Episode Created Date Number of Fetuses Patient Bloodtype Patient rh Status Prepregnancy Weight lbs Domestic Partner Domestic Partner Phone Father Name French Folder Status 06/26/19 24 1 O Negative 169 CLOSED Fetus Data First Name Last Name Admitted to NICU Weight (g) Sex Living Outcome Pediatric Complications Fetus ID Race Codes Race Delivery Type 2700.00 638 F true Full Term true knot 67214 Vaginal Delivery Problems Problem Notes [facility] - 11/24/23 9AM U/S ONLY - Dr. Barker to attach heparin dosages recommended to this u/s report!!![facility] Recommendations:Heterozygous prothrombin gene mutation - lovenox [...] Snomed Code Not e Factor II deficiency 68197905 lovenox 40 BID Advanced maternal age 705198519 no ASA ppx 2/2 allergy Mixed anxiety and depressive disorder 494661423 d/c'd me ds with , previously on zoloft and hydroxyzine History of deep vein thrombosis 05/29/2022 195174020 on prophylactic lovenox 40mg BID, [facility] consult sent, plan for ppx lovenox through , heparin at 36 weeks and x6 weeks Group B Streptococcus carrier [id number] tx in labor Ghulam Calculation Initial Ghulam [...] Date Ultra Sound Latest Days Gestation 0 [email or web address] 06/26/2023 01/04/20 24 0 Pre- Flowsheet Flowsheet Date 06/26/2023 Riddle Score Blood Edema Fundus Height Fundus Units Glucose Ketones Leukocytes Nitrite Labor Signs Protein Cervic Dilation Cervic Effacement Cervic Station neg none none trace Type Weight in lbs Pre/Post Dialysis Refused Weight 171.209451819897 BP Diastolic BP Location Tested BP Systolic BP Type 72 107 Fetus Heart Rate Present A 161 Fetus Movement A Yes Comments Patient presents to [facility] care. She reports some nausea, [...] to heparin at 36 weeks. Will order [facility] consult for recommendations regarding anticoagulation, will plan [...] Weight in lbs Pre/Post Dialysis Refused Weight 173.336106867575 BP Diastolic BP Location Tested BP Systolic BP Type 72 L arm 104 sitting Fetus Heart Rate Present A 155 Fetus Movement A Yes Comments Starting to feel movem ent, no cramping or bleeding. Patient reports continued nausea and vomiting, reports worsening with coughing and big meals. Will trial zofran. Saw [facility], who recommend prothrombin gene mutation testing, awaiting [...] Weight in lbs Pre/Post Dialysis Refused Weight 175.783920441515 BP Diastolic BP Location Tested BP Systolic [...] Weight in lbs Pre/Post Dialysis Refused Weight 178.143937840038 BP Diastolic BP Location Tested BP Systolic BP Type 68 L arm 116 sitting Fetus Heart Rate Present A 145 Fetus Movement A Yes Comments Patient c/o of slight nausea . Saw retort kiln burner yesterday, no changes to lovenox. Discussed GCT and labs for next visit. Has MFM US scheduled, had normal anatomy and growth. Scheduled for repeat growth with MFM at the end of September. Discussed method of delivery, patient desires spontaneous labor. RTC 4 weeks. Flowsheet Date 11/02/2023 Riddle Score Blood Edema Fundus Height Fundus Units Glucose Ketones Leukocytes Nitrite Labor Signs Protein Cervic Dilation Cervic Effacement Cervic Station Type Weight in lbs Pre/Post Dialysis Refused Weight 179.612892141424 BP Diastolic BP Location Tested BP Systolic [...] visit. Discussed tdap vaccine. EFW 24% at [facility] visit in September, recommend repeat in 4 weeks, ok to perform at [facility]. Will schedule with next visit. RTC 2 [...] Weight in lbs Pre/Post Dialysis Refused Weight 179.375572934079 BP Diastolic BP Location Tested BP Systolic BP Type 94 133 Fetus Heart Rate Present A 155 Fetus Movement A Yes Comments Good movement. No cram ping or bleeding. Hemorrhoids and straining somewhat improved. EFW 22%, footling breech. Discussed spinning babies, recheck in 3 weeks. Tdap received. Will recheck H/H next visit. Will discuss heparin dosing with M given intermediate lovenox dosing starting at 36 weeks. RTC 2 weeks. Flowsheet Date 12/04/2023 Riddle Score Blood Edema Fundus Height Fundus Units Glucose Ketones Leukocytes Nitrite Labor Signs Protein Cervic Dilation Cervic Effacement Cervic Station 0cm Type Weight in lbs Pre/Post Dialysis Refused Weight 178.693217614225 BP Diastolic BP Location Tested BP Systolic [...] Weight in lbs Pre/Post Dialysis Refused Weight 180.969237100830 BP Diastolic BP Location Tested BP Systolic [...] Weight in lbs Pre/Post Dialysis Refused Weight 181.733976015285 BP Diastolic BP Location Tested BP Systolic [...] Weight in lbs Pre/Post Dialysis Refused Weight 179.572636276364 BP Diastolic BP Location Tested BP Systolic BP Type 78 109 Fetus Heart Rate Present A 140 Fetus Movement A Yes Comments Doing well, baby active. Irr egular contractions, was seen in the hospital for contractions on Monday. Was 2cm at that time. No LOF or VB. BPP 03/07, ZOË 7.2cm with 2x2 pocket. Scheduled for [...] Estim ated Date of Delivery true Thalassemia (Kazakh, Setswana, Mediterranean, Or Background): MCV < 80 false Neural Tube Defect (Meningomyelocele, Spina Bifi da, Or Anencephaly) false Congenital Heart Defect false Down Syndrome false Salty-Sachs (eg, Lutheran, Cajun, Belarusian-Mcminn) f alse Stephanie Disease false Sickle Cell Disease Or Trait () false Hemophilia Or Other Blood Disorders false Muscular Dystrophy false Cystic Fibrosis false Moran's Chorea false Intellectual Disability/Autism false If Yes, [...] Sterilization Discharge Date Comments 4 Induce d Regional-Ep idural 39.1 false Fab Finney MD Advanced maternal age ,F actor II deficienc y,Group B Streptoco ccus carrier,H istory of deep vein thrombosi s,Mixed anxiety and depressiv e disorder Discharge Information Feeding Method Contraceptive Method Maternal HG B and HCT Levels Ob Episode Information Episode Created Date Number of Fetuses Patient Bloodtype Patient rh Status Prepregnancy Weight lbs Domestic Partner Domestic Partner Phone Father Name French Folder Status 06/06/19 24 1 CLOSED Fetus Data First Name Last Name Admitted to NICU Weight (g) Sex Living Outcome Pediatric Complications Fetus ID Race Codes Race Delivery Type 3259.96 5704 M Full Term [address]4733 Vaginal Delivery Ghulam Calculation Initial Ghulam Date [...]
--- OUTSIDE RECORDS SUMMARY | 2025-02-21 08:08 | XMS_ITS | Encounter Summary ---
Author Organization [facility] Address [address] [place] [address] Phone Care Team Providers Care Recovery Assistant Name Role Phone Cece Rios Primary Care Provider + Wang Stevenson MD Unavailable [phone] Reason for Visit * Reason Comments Medication Refill Encounter Details Date Type Department Care Team (Late st Contact Info) Description 11/19/2024 Refill [facility] [address] [place] [address] Cece Rios PAC [address] [place] [address] Medication Refill Social History Tobacco Use Types Packs/Day Years Used Date Smoking Tobacco: Every Day Cigarettes 0.5 15 Smokeless Tobacco: Never Alcohol Use Standard Drinks/Week Comments Yes 10 (1 standard drink = 0.6 oz pure alcohol) Vodka cranberry throughout week [facility] Utilities Answer Date Recorded In the past 12 months has [facility] Cater to u, gas, oil, or water company threatened to shut off services in your home? No 06/16/2024 Social Connection and Isolation Panel Answer Date Recorded In a typical week, how many times do you talk on the phone with family, friends, or neighbors? More than three times a week 06/16/2024 How often do you get togethe r with friends or relatives? Twice a week 06/16/2024 How often do you attend chur ch or cheondoism services? Never 06/16/2024 Do you belong to any clubs o r organizations such as religion groups, unions, fraternal or athletic groups, or [...] Total Score - Questions 1-9 4 07/28 [facility] - Occupational Stress [...] place to sleep or slept in a alf (including now)? No 06/12/2023 Housing Stability Vital Sign Answer Abdi e Recorded In the last 12 months, was t here a time when you were not able to pay the mortgage or rent on time? No 06/16/2024 In the past 12 months, how m any times have you moved where you were living? 0 06/16/2024 At any time in the past 12 m [facility], were you homeless or living in a alf (including now)? No 06/16/2024 Education Answer Date [...] Telephone Encounter - Marilin Quezada RN - 11/19/2024 9:03 AM CDT Images from the original note were not included. Sertraline HCl Dispensed Days Supply Quantity Provider Pharmacy [facility] 11/17/2024 90 90 Each Cece Rios PAC [facility]... [facility] 08/20/2024 90 90 Each Cece Rios PAC [facility]... documented in this encounter Plan of Treatment Upcoming Encounters Date Type Department Care Team (Late st Contact Info) Description 06/03/2025 11:00 AM SOLAR SALES REPRESENTATIVE AND ASSESSOR Office Visit [facility] [address] [place] [address] Cece Rios PAC [address] [place] [address] documented as of this encounter Visit Diagnoses Diagnosis Anxiety Anxiety state, unspecified documented in this encounter Additional Health Concerns Assessment Noted Time PHQ-9 Depression Total Score: 4 08/20/19 25 2:37 PM CDT documented as of this encounter Care Teams Recovery Assistant Relationship Specialty Start Date End Date Cece Rios PAC [address] [place] [address] PCP - General Physician Chair Springer 09/20/21 Wang Stevenson MD [address] [place] [address] Consulting Physician Medical Oncology 05/18/23 documented as of this encounter
--- OUTSIDE RECORDS SUMMARY | 2025-02-21 08:08 | XMS_ITS | Clinical Summary ---
Author Organization [facility] Address [address] [place] [address] Care Team Providers Care Marketing Support Specialist Name Role Phone Unavailable Primary Care Provider Unavailabl e Source Comments [facility],non-owned Affiliates and Associated Physician Practices is amultiple site organization consisting of ambulatory clinics and hospital sitesin [place], [place], [place] and [place]. This disclosure is being madepursuant to the Care Everywhere program and may not contain all information available regarding this patient. Last updated 18.[facility] Allergies Active Allergy Reactions Criticality Noted Date [...] Comments Blood Pressure 96/66 07/19/2023 9:12 AM DOWEL PIN MAN Pulse 86 07/19/2023 9:12 AM DOWEL PIN MAN Temperature - - Respiratory Rate - - Oxygen Saturation - - Inhaled Oxygen Concentration - - Weight 78.9 kg (174 lb) 07/19/2023 9:12 AM DOWEL PIN MAN Height 158.8 cm (5' 2.5) 07/19/2023 9:12 AM DOWEL PIN MAN Body Mass Index 31.32 07/19/2023 9:12 AM DOWEL PIN MAN Plan of Treatment Health Maintenance Due Date Last Done Comments HEPATITIS C SCREENING 10/10/2005 DTAP/TDAP/TD VACCINES (1 - Tdap) 10/14/2006 HEPATITIS B VACCINE (1 of 3 - 19+ 3-dose series) 10/14/2006 PNEUMOCOCCAL VACCINE (1 of 2 - PCV) 10/14/2006 PAP SMEAR 10/14/2008 HPV VACCINE (1 - 3-dose SCDM series) 10/14/2014 DEPRESSION SCREENING 05/29/2024 MEDICARE AWV CALENDAR YEAR 2024 COVID-19 VACCINE (2 - 2024- season) 2025 06/14/2021 INFLUENZA VACCINE (#1) 2025 3, 04/15/2022, 05/08/2018, Additional history exists ZOSTER VACCINE [...] this topic Insurance [facility] [place] INSURANCE Member Subscriber Plan / Payer (Ef fective for All Dates) Name:Endy Elkins Member ID:Not on file Relation to Subscriber:Not on file Name:ENDY ELKINS Subscriber ID:Not on file Address: [address] [place] [id number] Payer ID:Not on file Group ID:Not on file Type:Self Pay Address: [place], [place]
--- OUTSIDE RECORDS SUMMARY | 2025-02-21 08:08 | XMS_ITS | Clinical Summary ---
Author Organization [facility] Address [address] [place] [address] Phone Care Team Providers Care Disability Benefits Specialist Name Role Phone Cece Rios Primary Care Provider + Wang Stevenson MD Unavailable [phone] Allergies Active Allergy Reactions Criticality Noted Date Comments Aspirin Hives,Shortness of Breath 10/25/2010 Cephalexin Other (see Comments) 06/24/2022 Reaction as a child. Can not remember what the reaction was. Nsaids Swelling 03/27/2022 Medications Vit-Fe Fumarate-FA ( VITAMIN PO) Take 40 mg by mouth daily. Active methocarbamol (ROBAXIN) 750 MG Tablet Take 1 Tablet by mouth 4 times daily as needed (muscle spasm). 30 Tablet 08/19/2024 Active sertraline (ZOLOFT) 50 MG TabletIndication s:Anxiety Take 1 Tablet by mouth daily. 90 Tablet 3 11/26/2024 Active hydrOXYzine (ATARAX) 25 MG Tablet Take 1 Tablet by mouth every 6 hours as needed for Anxiety. 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 03/21/2024 as incidental finding 05/18/2023 History of anemia 07/26/2022 Acute deep vein thrombosis ( DVT) of tibial vein of left lower extremity 06/16/2022 On continuous oral anticoagulation 06/16/2022 Traumatic brain injury 09/20/2021 Left leg pain Encounters Date Type Department Care Team Description 11/26/2024 11:00 AM CDT Office Visit [facility] [address] [place] [address] Cece Rios PAC Anxiety (Primary Dx) Discharge Disposition: Discharged to home or Selfcare 11/26/2024 Results Follow-Up [facility] [address] [place] [address] Cece Rios PAC CMP (COMPREHENSIVE METABOLIC PANEL), LIPID PANEL, THYROID STIMULATING HORMONE (TSH), Additional followed-up results: 4 11/26/2024 Travel from Last 3 Months Immunizations Immunization [...] Used Date Smoking Tobacco: Every Day Cigarettes 0.7 22.5 Smokeless Tobacco: Never Tobacco Cessation:Ready to Q uit: No; Counseling Given: Not Answered Alcohol Use Standard Drinks/Week Comments Yes 10 (1 standard drink = 0.6 oz pu re alcohol) Vodka 1 time a week [facility] Utilities Answer Date Recorded In the past 12 months has [email or web address], gas, oil, or water [employer] threatened to shut off services in your [...] often do you attend chur ch or denominational services? Never 06/16/2024 Do you belong to any clubs o r organizations such as temple groups, unions, fraternal or athletic groups, or [...] Recorded Total Score - Questions 1-9 0 07/0 05/2024 [facility] - Occupational Stress Questionnaire Answer Date Recorded [...] place to sleep or slept in a long-term (including now)? No 06/12/2023 Housing Stability Vital Sign Answer Abdi e Recorded In the last 12 months, was t here a time when you were not able to pay the mortgage or rent on time? No 06/16/2024 In the past 12 months, how m any times have you moved where you were living? 0 06/16/2024 At any time in the past 12 m [facility], were you homeless or living in a long-term (including now)? No 06/16/2024 Education Answer Date [...] Sign Reading Time Taken Comments Blood Pressure 126/80 11/26/2024 10:57 AM CDT Pulse 74 11/26/2024 10:57 AM CDT Temperature 36.6 C (97.9 F) 11/26/2024 10:57 AM CDT Respiratory Rate 20 03/21/2024 9:18 AM CDT Oxygen Saturation 99% 11/26/2024 10:57 AM CDT Inhaled Oxygen Concentration - - Weight 73.9 kg (163 lb) 11/26/2024 10:57 AM CDT Height 158.8 cm (5' 2.5) 11/26/2024 10:57 AM CD T Body Mass Index 29.34 11/26/2024 10:57 AM CDT Plan of Treatment Upcoming Encounters Date Type Department Care Team (Late st Contact Info) Description 06/03/2025 11:00 AM BILL ADJUSTER Office Visit [facility] [address] [place] [address] Cece Rios, PAC [address] [place] [address] Health Maintenance Due Date Last Done Comments Hepatitis B Immunization (1 of 3 - 19+ 3-dose series) 10/14/2006 Human Papillomavirus (HPV) Immunization (1 - 3-dose SCDM series) 10/14/2014 Pneumococcal Immunization Combined (2 of 2 - PPSV23, PCV20, or PCV21) 11/29/2021 10/04/2021, 10/04/2021 Influenza Immunization (#1) 2025 03/2 08/2024, 02/01/2023, 04/15/2022, Additional history exists SARS-COV-2 Immunization ( - season) 2025 06/14/2021 Pap Smear 06/16/2025 06/16/2022 Cervical Cancer Screening (CCS) 06/16/2027 HPV/Cotest 06/16/2027 06/16/2022 Td Immunization Every 10 Years (Adults With 1 Tdap) 11/16/2033 11/17/2023 Respiratory Syncytial Virus (RSV) Immunization (Adult) (1 - 1-dose 75+ series) 10/14/2062 Hepatitis C Virus (HCV) Screening Completed 06/26/2023 DTaP/Tdap/Td Immunization Discontinued 11/17/2023 TdaP Immunization Discontinued 11/17/2023 Meningococcal Immunization (ACWY) Aged Out No longer eligible based on patient's age to complete this topic Rotavirus Immunization Aged Out No lo nger eligible based on patient's age to complete this topic Procedures Procedure Name Priority Date/Time Associated Diagnosis Comments CBC WITH AUTO DIFFERENTIAL Routine 11/26/2024 11:35 AM CDT Anxiety Elevated MCV VITAMIN D, 25 HYDROXY TOTAL Routine 11/26/2024 11:35 AM CDT Vitamin D deficiency FOLIC ACID (FOLATE) Routine 11/26/2024 1 1:35 AM CDT Elevated MCV VITAMIN B12 Routine 11/26/2024 11:35 AM CDT Elevated MCV THYROID STIMULATING HORMONE (TSH) Routine 11/26/2024 11:35 AM CDT Anxiety LIPID PANEL Routine 11/26/2024 11:35 AM CDT Screening cholesterol level Screening for cardiovascular condition COMPLETE BLOOD COUNT (CBC) WITH DIFF Routine 11/26/2024 11:35 AM CDT Anxiety Elevated MCV CMP (COMPREHENSIVE METABOLIC PANEL) Routine 11/26/2024 11:35 AM CDT Anxiety HUMAN PAPILLOMA VIRUS (HPV) Routine 06/16/2022 11:46 AM BILL ADJUSTER Well woman exam PATHOLOGY CYTOLOGY MANAGER PHYSICAL Routine 06/16/2022 11:46 AM BILL ADJUSTER Well woman exam from Last 3 Months or Most Recently Relevant to Health Maintenance Results * VITAMIN D, 25 HYDROXY TOTAL (11/26/2024 11:35 AM CDT) VITAMIN D, 25 HYDROX 34.8 ng/mL 11/26/2024 1:24 PM CDT [facility] Blood Venipuncture / Unknown 11/26/2024 11:35 AM CDT 11/26/2024 12:03 PM CDT Narrative [facility] - 11/26/2024 1:24 PM CDT Published reference ranges for Vitamin D vary depending on time and place and method of testing, and on patient's age, sex, ethnicity and levels of other measured analytes such as parathormone, calcium and phosphorus. The result should be evaluated in conjunction with clinical findings and suspicions. [place] [facility] and Endocrine Clinical Practice Guidelines: Status Vitamin D levels (ng/mL) Deficient <=20 At risk of inadequacy 21-29 Sufficient 30-100 Centers of Disease Control and Prevention Guidelines: Status Vitamin D levels (ng/mL) Deficient <13 At risk of inadequacy 13-19 Sufficient 20-50 Possibly harmful >50 References: [place] [employer] [facility], 2010 Dietary reference intakes for calcium and vitamin D. [place]: The National Academies Press. Srinivasan M, Waqas N, Aramis CINTRON, et al., Evaluation, treatment, and prevention of Vitamin D deficiency: an Endocrinology Clinical Practice Guideline. JCEM 2011 96: 7 7001-2603. Marcia A, Andrew C, Hector D, et al., Vitamin D Status: [place], 1111-6318, [facility] data brief, no. 59, MD Alyss[place]: National Center for Health Statistics. 2010. Cece Rios PAC CHEMISTRY ORDERABLES Fin al Result [facility] [address] [place] [address] * (ABNORMAL) CBC WITH AUTO DIFFERENTIAL (11/26/2024 11:35 AM CDT) WBC 6.87 4.00 - 12.00 10(3)/mcL 11/26/2024 12:06 PM CDT [facility] RBC 4.57 3.80 - 5.30 10(6)/mcL 11/26/2024 12:06 PM CDT [facility] HEMOGLOBIN (HGB) 14.4 12.0 - 15.8 g/dL 11/26/2024 12:06 PM CDT [facility] HEMATOCRIT (HCT) 43.0 36.0 - 47.0 % 11/26/2024 12:06 PM CDT [facility] MCV 94.1 82.0 - 96.0 fL 11/26/2024 12:06 PM CDT [facility] MCH 31.5 26.0 - 34.0 pg 11/26/2024 12:06 PM CDT [facility] MCHC 33.5 31.0 - 36.0 g/dL 11/26/2024 12:06 PM CDT [facility] PLATELET COUNT 179 140 - 440 10(3)/mcL 11/26/2024 12:06 PM CDT [facility] RDW 14.3 11.8 - 15.5 % 11/26/2024 12:06 PM CDT [facility] MPV 11.2 9.7 - 12.4 fL 11/26/2024 12:06 PM CDT [facility] NEUTROPHILS 69.3 47.0 - 73.0 % 11/26/2024 12:06 PM CDT [facility] LYMPHOCYTES 20.2 18.0 - 42.0 % 11/26/2024 12:06 PM CDT [facility] MONOCYTES 8.4 4.0 - 12.0 % 11/26/2024 12:06 PM CDT [facility] EOSINOPHILS 1.2 0.0 - 5.0 % 11/26/2024 12:06 PM CDT [facility] BASOPHILS 0.3 0.0 - 1.0 % 11/26/2024 12:06 PM CDT [facility] IMMATURE GRANULOCYTE 0.6(H) 0.0 - 0.4 % 11/26/2024 12:06 PM CDT [facility] Comment:Immature Granulocyte s includes Metamyelocytes, Myelocytes, and Promyelocytes. ABSOLUTE NEUTROPHILS 4.76 1.60 - 7.70 10(3)/mcL 11/26/2024 12:06 PM CDT [facility] ABSOLUTE LYMPHOCYTES 1.39 1.30 - 3.20 10(3)/mcL 11/26/2024 12:06 PM CDT [facility] ABSOLUTE MONOCYTES 0.58 0.20 - 1.00 10(3)/mcL 11/26/2024 12:06 PM CDT [facility] ABSOLUTE EOSINOPHIL 0.08 0.00 - 0.40 10(3)/mcL 11/26/2024 12:06 PM CDT [facility] ABSOLUTE BASOPHILS 0.02 0.00 - 0.10 10(3)/mcL 11/26/2024 12:06 PM CDT [facility] ABSOLUTE IMMATURE GRANULOCYTE 0.04(H) 0.00 - 0.03 10 (3) mcL. 11/26/2024 12:06 PM CDT [facility] NRBC PER 100 WBC 0 11/27/19 12:06 PM CDT [facility] Blood Venipuncture / Unknown 11/26/2024 11:35 AM CDT 11/26/2024 12:02 PM CDT Cece Rios PAC HEMATOLOGY ORDERABLES Fi nal Result Performing Organization Address City/[facility]/ZIP Co de Phone Number [facility] [address] [place] [address] * VITAMIN B12 (11/26/2024 11:35 AM CDT) VITAMIN B12 457 213 - 816 pg/mL 11/26/2024 1:24 PM CDT [facility] Blood Venipuncture / Unknown 11/26/2024 11:35 AM CDT 11/26/2024 12:03 PM CDT Cece Rios PAC CHEMISTRY ORDERABLES Fin al Result [facility] [address] [place] [address] * THYROID STIMULATING HORMONE (TSH) (11/26/2024 11:35 AM CDT) TSH 1.675 0.300 - 5.000 mIU/L 11/26/2024 1:10 PM CDT [facility] Blood Venipuncture / Unknown 11/26/2024 11:35 AM CDT 11/26/2024 12:03 PM CDT us BingKaylyn Rios PAC CHEMISTRY ORDERABLES Fin al Result [facility] [address] [facility] [place] [address] * (ABNORMAL) LIPID PANEL (11/26/2024 11:35 AM CDT) CHOLESTEROL 175 <200 mg/dL 11/26/2024 12:56 PM CDT [facility] TRIGLYCERIDES 184(H) <150 mg/dL 11/26/2024 12:56 PM CDT [facility] HDL CHOLESTEROL 61 >40 mg/dL 12:56 PM CDT [facility] LDL 77 <130 mg/dL 11/26/2024 12:56 PM CDT [facility] VLDL 37 10 - 50 mg/dL 11/26/2024 12:56 PM CDT [facility] CHOL/HDL RATIO 2.9 0.0 - 4.4 11/26/2024 12:56 PM CDT [facility] NON-HDL CHOLESTEROL 114 <130 mg/dL 11/26/2024 12:56 PM CDT [facility] IS THE PATIENT REQUIRED TO BE FASTING? No 11/26/2024 12:56 PM CDT [facility] Blood Venipuncture / Unknown 11/26/2024 11:35 AM CDT 11/26/2024 12:03 PM CDT us BingKaylyn Rios PAC CHEMISTRY ORDERABLES Fin al Result [facility] [address] [place] [address] * FOLIC ACID (FOLATE) (11/26/2024 11:35 AM CDT) FOLATE 10.8 7.0 - 31.4 ng/mL 11/26/2024 1:24 PM CDT [facility] IS THE PATIENT REQUIRED TO BE FASTING? No 11/26/2024 1:24 PM CDT [facility] Blood Venipuncture / Unknown 11/26/2024 11:35 AM CDT 11/26/2024 12:03 PM CDT us Cece Rios PAC CHEMISTRY ORDERABLES Fin al Result [facility] [address] [place] [address] * (ABNORMAL) CMP (COMPREHENSIVE METABOLIC PANEL) (11/26/2024 11:35 AM CDT) SODIUM 140 136 - 145 mmol/L 11/26/2024 12:56 PM CDT [facility] POTASSIUM 4.1 3.5 - 5.1 mmol/L 11/26/2024 12:56 PM CDT [facility] CHLORIDE 105 98 - 107 mmol/L 11/26/2024 12:56 PM CDT [facility] CO2, VENOUS 25 22 - 30 mmol/L 11/26/2024 12:56 PM CDT [facility] ANION GAP 14.1 <18.0 mmol/L 11/26/2024 12:56 PM CDT [facility] GLUCOSE 97 70 - 99 mg/dL 11/26/2024 12:56 PM CDT [facility] BUN 8 5 - 18 mg/dL 11/26/2024 12:56 PM CDT [facility] CREATININE, BLOOD 0.77 0.60 - 1.00 mg/dL 11/26/2024 12:56 PM CDT [facility] BUN/CREATININE RATIO 10(L) 12 - 20 ratio 11/26/2024 12:56 PM CDT [facility] TOTAL PROTEIN 7.6 6.0 - 8.0 g/dL 11/26/2024 12:56 PM CDT [facility] ALBUMIN 4.5 3.5 - 5.0 g/dL 11/26/2024 12:56 PM CDT [facility] A/G RATIO 1.5 1.0 - 2.2 11/26/2024 12:56 PM CDT [facility] CALCIUM 9.0 8.7 - 10.5 mg/dL 11/26/2024 12:56 PM CDT [facility] T BILI 0.6 0.2 - 1.2 mg/dL 11/26/2024 12:56 PM CDT [facility] SGOT (AST) 50(H) <43 U/L 11/26/2024 12:56 PM CDT [facility] SGPT (ALT) 29 <56 U/L 11/26/2024 12:56 PM CDT [facility] ALKALINE PHOSPHATASE 102 40 - 150 U/L 11/26/2024 12:56 PM CDT [facility] IS THE PATIENT REQUIRED TO BE FASTING? No 11/26/2024 12:56 PM CDT [facility] GFR, ESTIMATED >60 >=60 11/26/2024 12:56 PM CDT [facility] Comment: Creatinine Clearance is the preferred criteria for selecting drug dose adjustments in renally impaired patients. The GFR is provided as additional pertinent clinical information. GFR is reported in mL/min/1.73 sq m. Calculation based on the Chronic Kidney Disease Epidemiology Collaboration (CKD- EPI) equation refit without adjustment for race. GFR, EST. >60 >=60 025 12:56 PM CDT [facility] GFR, EST. NONAFRICAN >60 >=60 11/26/2024 12:56 PM CDT [facility] Blood Venipuncture / Unknown 11/26/2024 11:35 AM CDT 11/26/2024 12:03 PM CDT us Cece Rios PAC CHEMISTRY ORDERABLES Fin al Result [facility] [address] [place] [address] * PATHOLOGY CYTOLOGY MANAGER PHYSICAL (06/16/2022 11:46 AM BILL ADJUSTER) SPECIMEN ADEQUACY Satisfactory for evaluation. Endocervical/transf ormation zone component is present. 06/22/2022 11:00 AM BILL ADJUSTER [facility] DESCRIPTIVE DIAGNOSIS NEGATIVE FOR INTRAEPITHELIAL LESIONS OR MALIGNANCY. 06/22/2022 11:00 AM BILL ADJUSTER [facility] at 1100 BILL ADJUSTER HPV Reflex if ASCUS? No 06/22/2022 11:00 AM [facility] Comment:cotest Automated Examination Analysis of this sample has been assisted by an automated imaging and review system ([employer] Imaging System, [employer], [place], [place]). This case is further evaluated and finalized by a hi ranger operator and/or pathologist. 06/22/2022 11:00 AM [facility] Disclaimer The PAP smear is [...] recommended every three years for women 21-29, Co-Testing, a PAP test in conjunction with an HPV (Human Papillomavirus) test for women ages 30-65, and no PAP or HPV testing for women under the age of 21 or older than 65 unless clinically indicated. 06/22/2022 11:00 AM [facility] Other CERVIX UTERI STRUCTURE / Unknown Non-Phlebotomy Collection / Unknown 06/16/2022 11:46 AM BILL ADJUSTER 06/16/2022 11:46 AM BILL ADJUSTER us Cece Rios PAC PATHOLOGY/CYTOLOGY ORDER BRENDEN Final Result [facility] [address] [place] [address], [place] * HUMAN PAPILLOMA VIRUS (HPV) (06/16/2022 11:46 AM BILL ADJUSTER) HPV OTHER HIGH RISK TYPES, PCR NEGATIVE NEGATIVE 06/20/2022 2:04 PM BILL ADJUSTER [facility] Comment: The following Other High Risk types [...] TYPE 16 NEGATIVE NEGATIVE 06/20/2022 2:04 PM BILL ADJUSTER [facility] Comment: A negative high-risk HPV result does [...] TYPE 18 NEGATIVE NEGATIVE 06/20/2022 2:04 PM BILL ADJUSTER [facility] Comment: A negative high-risk HPV result does [...] SCREENING OR DIAGNOSTIC SCREENING 06/20/2022 2:04 PM BILL ADJUSTER [facility] Other Non-Phlebotomy Collection / Unknown 06/16/2022 11:46 AM BILL ADJUSTER 06/16/2022 11:46 AM BILL ADJUSTER Narrative [facility] - 06/20/2022 2:04 PM BILL ADJUSTER Performed by Real-Time Polymerase Chain Reaction (PCR) on the Karol Selvin 4800. This assay has been validated for use with post-aliquot samples from the [employer] T5000 processor. Cece Rios PAC LAB SEND OUTS Final Re sult [facility] [address] [place] [address], [place] [facility] [address] [place] [address] from Last 3 Months or Most Recently Relevant to Health Maintenance [place] [address] MEDICARE C HERRON Care Teams Disability Benefits Specialist Relationship Specialty Start Date End Date Cece Rios PAC [address] [place] [address] PCP - General Physician Enamel Finisher 09/20/21 Wang Stevenson MD [address] [place] [address] Consulting Physician Medical Oncology 05/18/23
--- OUTSIDE RECORDS SUMMARY | 2025-02-21 08:08 | XMS_ITS | Encounter Summary ---
Author Organization [facility] Address [address] [place] [address] Phone Care Team Providers Care Order Desk Clerk Name Role Phone Cece Rios Primary Care Provider + Wang Stevenson MD Unavailable [phone] Reason for Visit * Reason Comments Medication Refill Encounter Details Date Type Department Care Team (Late st Contact Info) Description 12/04/[address] [facility] [address] [place] [address] Cece Rios PAC [address] [place] [address] Medication Refill Social History Tobacco Use Types Packs/Day Years Used Date Smoking Tobacco: Every Day Cigarettes 0.5 15 Smokeless Tobacco: Never Alcohol Use Standard Drinks/Week Comments Yes 10 (1 standard drink = 0.6 oz pure alcohol) Vodka cranberry throughout week [facility] Utilities Answer Date Recorded In the past 12 months has [facility] [employer], gas, oil, or water company threatened to shut off services in your home? No 06/12/2023 Social Connection and Isolation Panel Answer Date Recorded In a typical week, how many times do you talk on the phone with family, friends, or neighbors? More than three times a week 06/12/2023 How often do you get togethe r with friends or relatives? Twice a week 06/12/2023 How often do you attend chur ch or restorationism services? Never 06/12/2023 Do you belong to [...] Total Score - Questions 1-9 0 08/28 [facility] - Occupational Stress [...] place to sleep or slept in a halfway (including now)? No 06/12/2023 Education Answer Date [...] st Contact Info) Description 06/03/2025 11:00 AM MEAL MILLER [facility] [address] [place] [address] Cece Rios, WALT [address] [place] [address] documented as of this encounter Visit Diagnoses Diagnosis Anxiety Anxiety state, unspecified documented in this encounter Care Teams Order Desk Clerk Relationship Specialty Start Date End Date Cece Rios PAC [address] [place] [address] PCP - General Physician Lint Cleaner 09/20/21 Wang Stevenson MD [address] [place] [address] Consulting Physician Medical Oncology 05/18/23 documented as of this encounter
[2025-02-21 08:09] VITALS: BP 128/86; PULSE 100; RESP 14; TEMP 36.1; O2SAT 99
[2025-02-21 08:28] LABS: EDSTREPNEGPOS1 Positive (Negative)
== END 2025-02-21 08:32 | disposition home or self-care (01) ==
PROVIDERS: Emergency Provider Nurse Practitioner Family; PCP Physician Assistant
DX: J02.0 Streptococcal pharyngitis (principal); F17.210 Nicotine dependence, cigarettes, uncomplicated
CPT/HCPCS: 87880; 99213; G0463

== ENCOUNTER 2025-05-26 01:27 | Day surgery (SDC) | payer OTHER, SELFPAY ==
[2025-05-19 10:27] VITALS: BMI 29.7
--- NOTE | 2025-05-19 10:37 | PC.NURSE ---
[facility] has started construction of its new state of the art ER which will open Spring 2026. With this, we anticipate parking may be a challenge for some our surgical patients and families. Parking spaces are limited but are available for all Surgical, obstetrics, and ER patients sharing this lot. If you arrive and find you are having a hard time finding a parking space, please note that we understand the challenges, please drive around the hospital and park near Hospital Entrance 1. When you enter this entrance, you can ask a volunteer to direct or take you back to the surgical waiting area to check in. We appreciate everyone?s understanding of these expected challenges while we build for your future. Report to the Outpatient Waiting Room, entrance under the green pavilion located off [address], at time _0600_ on date _[id number]_. Planned Procedure Time: _0730_.? Time changes happen often and if your time is changed the preop area will call you the afternoon before. - You and your visitor will be asked to self-screen and do not enter if you have any COVID symptoms. Please call surgeon if you need to reschedule. - A mask is optional within the hospital at this time. Patients may have clear liquids (water, carbonated beverages, clear teas, apple juice) until 3 hours prior to surgery with a maximum of 20 ounces. - No food from midnight until time of surgery and no smoking, or chewing tobacco (or any form of nicotine). No chewing gum, candy or mints. Take only the following medications with a SIP of water on the morning of surgery: ___Sertraline and if needed Hydroxyzine.____ DO NOT STOP ANY OF YOUR OTHER PRESCRIPTION MEDICATIONS PRIOR TO SURGERY EXCEPT THE FOLLOWING Hold all vitamins and supplements for 3 days per anesthesiologist. Medications to discontinue per physician Date to take last dose Please no make-up, nail malian, hairspray, perfume, deodorant, or body powder the day of surgery.? No jewelry (including any body piercings) or valuables the day of surgery, leave them at home.? Please take a shower or bath the night before, or the morning of, surgery with an antibacterial soap.? Wear comfortable, loose fitting clothing.? - Jewelry must be removed prior to entering the operating room.? Rings and piercings that are not removed may be cut off. - The hospital will not accept responsibility for valuables.? - Please leave all valuables, including medications, at home the day of surgery. If you are going home after surgery, a licensed racecar driver must drive you home.? - NO public transportation without another adult if you receive anesthesia. - We recommend that an adult stay with you for 24 hours following discharge. - We also recommend that you do not drive, make important decision, drink alcoholic beverages, or take any drugs that were not prescribed by your health care provider for at least 24 hours after your discharge time. Follow any additional instructions given to you from your surgeon. Telephone instructions given to __August__and asked if any additional questions and then verbalized understanding. Patient advised to call surgeon office or pre surgery nurse liaison [phone] if any additional questions.
[2025-05-26] VITALS (8 sets, daily range): BP systolic 102–126; BP diastolic 56–82; PULSE 69–108; RESP 16–18; TEMP 36.2–36.6; O2SAT 96–100
[2025-05-26] MEDS: LACTATED RINGERS 1,000 ML 30 ML IV CONT (06:30)
[2025-05-26] MEDS: ACETAMINOPHEN 500 MG TABLET 1000 MG PO (06:30)
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
--- NOTE | 2025-05-26 07:23 | WPDHPUPDATE1 ---
History and Physical Update Update Date/Time: 05/26/25 07:23 History and Physical has been reviewed, including an updated exam of the patient. There are NO changes in the patient's condition. Risks, benefits, and alternatives have been discussed and questions answered. Patient agrees to proceed with procedure.
--- NOTE | 2025-05-26 08:03 | S_PTH ---
PATIENT: RodrickAugust LOC: [facility] U#:[id number] AGE/SX: 39/F ROOM: RE05/26/[address]: Forrest Redding MD : [id number] BED: DIS: 05/26/2025 SPEC #: [id number] RECD: 05/26/25 10:22 STATUS: ILIANA REMartin #: [id number] HAY: 05/26/25 08:[address]: Forrest Redding DEPT: [facility] Surgical RECD BY: Osiris Huber ENTERED: 05/26/25 10:22 SP TYPE: Surgical OTHR DR: Cece Rios, PA Tissues: A - Fallopian Tube Bilateral Procedures: Gross and Microscopic Level 2 Hematoxylin and Eosin Stain
[2025-05-26] MEDS: LIDO 1%/EPINEPHRINE 1:100,000 50 ML VIAL (08:05)
--- NOTE | 2025-05-26 08:10 | W.PM.PROC2 ---
Procedure Note - Detailed Date of Procedure 05/26/25 Pre-op Diagnosis desires sterilization Post-op Diagnosis Same Procedure Performed laparoscopic bilateral salpingectomy Surgeon Forrest Redding MD Anesthesia General Indications desires permanent sterilization Findings normal appearing uterus, bilateral tubes and bilateral ovaries Description of Procedure With IV fluids infusing, the patient was taken to the operating room. The patient was placed in supine position. General anesthesia with endotracheal intubation was given. A time-out took place. The patient was placed in dorsal lithotomy position using Vinicius stirrups and she was prepped and draped in the usual sterile fashion. The bladder was drained using a red rubber catheter. A sterile speculum was placed vaginally, the anterior lip of the cervix was grasped with a single-tooth tenaculum and the acorn uterine manipulator was placed without difficulty. The speculum was removed. The surgeon's gloves were changed and attention was turned to the abdomen. A 5 mm incision was made in the umbilicus. Under direct visualization with the scope, the umbilical port was inserted without difficulty. Another two trocars were placed under direct visualization in the left upper and left lower quadrants. The patient was placed in Trendelenburg and inspection of the pelvis noted the above findings. Appropriate pictures were taken. Using the LigaSure device, a left salpingectomy was performed in the usual fashion. Care was taken to avoid the IP ligament. The salpingectomy went smoothly. The same procedure was repeated on the right side. The instruments were all removed from the abdomen and the CO2 gas was allowed to escape. The three skin incisions were reapproximated with 4-0 Polysorb in a subcuticular manner, followed by skin glue. The acorn manipulator and single tooth tenaculum was removed from the uterus and cervix, respectively. The tenaculum sites were hemostatic. All instruments were removed from the vagina. At the end of the case, instrument, sponge and needle counts were correct x 2. The patient was awakened from general anesthesia and was taken to PACU in stable condition. Estimated Blood Loss 5 Pathology Yes Complications No immediate complications Condition Stable Disposition Same day
[2025-05-26] MEDS: fentaNYL CITRATE INJ (*CRX) 100 MCG/2 ML VIAL 25 MCG IV PUSH ×2 (08:34→08:36)
[2025-05-26] MEDS: oxyCODONE HCL (*CRX) 5 MG TAB IR PO (09:25)
== END 2025-05-26 10:38 | disposition home or self-care (01) ==
PROVIDERS: PCP Physician Assistant; Visit Provider Obstetrics & Gynecology
PROC: (CPT 49320; principal; 2025-05-26 07:30)
DX: Z30.2 Encounter for sterilization (principal); F17.210 Nicotine dependence, cigarettes, uncomplicated
CPT/HCPCS: 58661; 88302; A9270; J1100; J2003; J2004; J2250; J2405; J2704; J3010; J7120